=== PATIENT | male | born 1970 | race Caucasian/White ===

== ENCOUNTER 2023-09-27 13:08 | Observation (INO) ==
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
[2023-09-27 14:40] LABS: iSTAT Creatinine 1.1 mg/dl (0.6-1.3); iSTAT Hemoglobin 15.6 g/dl (14.0-18.0); iSTAT Ionized Calcium 1.16 mmol/l (1.12-1.32); iSTAT Potassium 3.7 mmol/L (3.3-5.0)
[2023-09-27] MEDS ORDERED: OPTIRAY 320 100ml IV ONE (14:40)
[2023-09-27 14:41] LABS: Hematocrit (blood only) 44.9 % (42.0-52.0); Hemoglobin 15.8 g/dl (14.0-18.0); Mean Corpuscular Hemoglobin 31.9 pg (25.0-34.0); Mean Corpuscular Hgb Conc 35.2 g/dL (32.0-36.0); Mean Corpuscular Volume 90.7 fL (80.0-100.0); Mean Platelet Volume 11.3 fL (9.4-12.4); Platelet Count 262 K/uL (130-400); RDW Coefficient of Variation 12.4 % (11.5-14.5); RDW Standard Deviation 40.9 fL (36.4-46.3); Red Blood Count 4.95 M/uL (4.70-6.10); White Blood Count 18.14 K/ul (4.8-10.8)
[2023-09-27 15:00] LABS: Albumin Globulin Ratio 1.3 (0.9-2); BUN Creatinine Ratio 15.4 (10-20); Bilirubin,Total 0.6 mg/dl (0.2-1.0); Calcium 9.1 mg/dl (8.6-10.3); Creatinine Clr Calc Pharmacy 99.2 ml/min; Est GFR (African American) 95.2 ml/min; Est GFR (Non-African American) 82.2 ml/min; Globulin 3.2 gm/dl (2.5-4.0); Potassium 3.8 mmol/L (3.5-5.1); Total Protein 7.2 gm/dl (6.0-8.3); Troponin I High Sensitivity 6.7 pg/ml (0-20)
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
[2023-09-27] MEDS ORDERED: KETOROLAC TROMETHAMINE 15 MG/ML VIAL IV STA (16:35)
[2023-09-27] MEDS ORDERED: MoRPHine SULFATE 4 MG/ML 1 ML CARP\\VIAL IV STA (17:04)
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
[2023-09-27] MEDS ORDERED: ACETAMINOPHEN 325 MG TAB PO PRN (18:33)
[2023-09-27] MEDS ORDERED: HYDROmorphone INJ 1 MG/ML SYRINGE IV PRN (18:33)
[2023-09-27] MEDS ORDERED: LIDOCAINE 5% 1 PATCH TD STA (18:33)
[2023-09-27] MEDS: HYDROmorphone INJ 0.5 MG/0.5 ML SYR IV PRN (21:08)
[2023-09-27] MEDS ORDERED: ALBUTEROL HFA 8 GM INHALER INH PRN (22:53)
[2023-09-27 23:12] LABS: Hematocrit (blood only) 42.6 % (42.0-52.0); Hemoglobin 15.1 g/dl (14.0-18.0)
[2023-09-28] MEDS ORDERED: NAPROXEN 250 MG TAB PO SCH
[2023-09-28] MEDS: HYDROmorphone INJ 0.5 MG/0.5 ML SYR IV PRN ×3 (01:12→11:24)
[2023-09-28 07:27] LABS: BUN Creatinine Ratio 15.2 (10-20); Calcium 8.7 mg/dl (8.6-10.3); Creatinine Clr Calc Pharmacy 97.8 ml/min; Est GFR (African American) 101.1 ml/min; Est GFR (Non-African American) 87.2 ml/min; Potassium 3.9 mmol/L (3.5-5.1)
[2023-09-28 07:33] LABS: Basophils # (auto) 0.04 K/uL (0.00-0.20); Basophils % (auto) 0.7 %; Eosinophils # (auto) 0.11 K/uL (0.00-0.50); Eosinophils % (auto) 1.8 %; Hematocrit (blood only) 43.4 % (42.0-52.0); Hemoglobin 14.9 g/dl (14.0-18.0); Immature Granulocytes # (auto) 0.03 K/uL (0.01-0.20); Immature Granulocytes % (auto) 0.5 %; Lymphocytes # (auto) 0.98 K/uL (1.20-3.40); Lymphocytes % (auto) 16.3 %; Mean Corpuscular Hemoglobin 31.7 pg (25.0-34.0); Mean Corpuscular Hgb Conc 34.3 g/dL (32.0-36.0); Mean Corpuscular Volume 92.3 fL (80.0-100.0); Mean Platelet Volume 11.7 fL (9.4-12.4); Monocytes # (auto) 0.78 K/uL (0.11-0.59); Neutrophils # (auto) 4.08 K/uL (1.40-6.50); Neutrophils % (auto) 67.7 %; Platelet Count 234 K/uL (130-400); RDW Coefficient of Variation 12.7 % (11.5-14.5); RDW Standard Deviation 43.3 fL (36.4-46.3); White Blood Count 6.02 K/ul (4.8-10.8)
[2023-09-28] MEDS ORDERED: CETIRIZINE HCL 10 MG TABLET PO SCH (09:00)
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
[2023-09-28] MEDS ORDERED: HYDROmorphone INJ 0.5 MG/0.5 ML SYR IV STA (13:23)
[2023-09-28] MEDS ORDERED: oxyCODONE IR HOME PACK PO PRN (13:29)
--- NOTE | 2023-09-28 17:46 | Billing Data ---
Date of Service September 28, 2023 Coding Level of Care Code 63057 IN/OBS DISCH 30 MIN/LESS
--- NOTE | 2023-09-28 20:04 | Electrocardiogram Report ---
Test Reason : Blood Pressure : / mmHG Vent. Rate : 088 BPM Atrial Rate : 088 BPM P-R Int : 186 ms QRS Dur : 090 ms QT Int : 388 ms P-R-T Axes : 086 068 058 degrees QTc Int : 469 ms Poor data quality, interpretation may be adversely affected Normal sinus rhythm Normal ECG No previous ECGs available Confirmed by Garland Servin ([id number]) on 09/28/2023 8:03:38 PM Referred By: Confirmed By:Garland Servin
--- OUTSIDE RECORDS SUMMARY | 2023-09-30 22:51 | External Medical Summary | Continuity of Care Document ---
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, System Address Unknown Organization Unknown Address Unknown Care Team Providers Care Prescription Clerk Name Role Phone HENRI MYERS Unavailable Unavailable Aniya Noriega MD Unavailable [phone] HENRI MYERS MD Unavailable [phone] KYREE GUIDRY MD Unavailable [phone] ZOHAIB MADRIGAL MD Unavailable Conchita BRAUN, Michelle A Unavailable Unavailab Zohaib Flanagan MD Unavailable Unavailable Antoinette Webber Unavailable Unavailable Unavailable Unavailable Problems Asthma MD Aniya Noriega COVID-19 virus infection(U07 .1) (079.89) MD Aniya Noriega Comments:10/2021, 02/2022 Health education (Renamed fr Encounter for health education)(Z71.9) (V65.40) APARNA Arango Intermittent palpitations(R0 0.2) (785.1) MD Aniya Noriega Left chest pressure(R07.89) (786.59) MD Aniya Noriega Mitral Valve Prolapse MD Aniya Noriega MVP (mitral valve prolapse)( I34.1) (424.0) MD Aniya Noriega Overweight (BMI 25.0-29.9)(E 66.3) (278.02) MD Aniya Noriega Paroxysmal SVT (supraventric ular tachycardia)(I47.1) (427.0) MD Aniya Noriega PFO MD Aniya Noriega Comments:patent formale valve Premature atrial contraction(I49.1) (427.61) MD Aniya Noriega PVC (premature ventricular contraction)(I49.3) (427.69) MD Aniya Noriega Received COVID-19 vaccine MD Aniya Noriega Comments:1 doses Allergies and Adverse Reactions No IV Dye Allergy(Allergy) No Known Drug Allergies(Gutierrez rgy) Onset: 04-Oct-2015 No latex allergy(Allergy) No shellfish allergy(Allergy ) Medications CLARITIN, 5MG (Oral Tablet C hewable);1 as needed (5 MG) Comments:Medication taken as needed. IBUPROFEN, 600MG (Oral Table t);1 as needed (600 MG) Comments:Medication taken as needed. Qvar 40 MCG/ACT Inhalation A erosol Solution;as needed (40 MCG/ACT) Comments:Medication taken as needed. Ventolin HFA 108 (90 Base) M CG/ACT Inhalation Aerosol Solution;as needed (108 (90 Base) MCG/ACT) Comments:Medication taken as needed. Procedures EPS ABLATION Status:Completed Comments:found tachycardia x2 1995 1998 Finger Status:Completed Comments:Left. pinky fx Varicole Status:Completed Comments:testical repair Echo Date:23-Oct-2015 Status:[id number] MD Herminio Zohaib- Procedure Note: See Note Family History Unknown Family Member Father Status:Active Comments:In good health. no heart disease Mother Status:Active Comments:In good health. no heart disease Sister 1 Status:Active Comments:In good health. no heart disease Social History Alcohol use:;Occasional alcohol use. Current work status:;Full-time. MD H[facility] Marital status:;. Tobacco use:;Never smoker. Smoking Status Never smoked tobacco Sex Male Plan of Treatment Planned Procedures Extended wear monitor - 7 da ys (67882) - SOON (within 1 - 2 weeks) Start:18-Apr-2023 Intent Exercise Stress Test (ST) (83989) - SOON (within 1-2 weeks) Start:18-Apr-2023 Intent 2D Echo, Complete (02973) - SOON (within 1-2 weeks) Start:18-Apr-2023 Intent Comments:With or without IV contrast enhancement agent ELECTROCARDIOGRAM, COMPLETE (53114) Start:18-Apr-2023 Intent Holter Monitor Start:04-Oct-2015 Intent Instructions Exercise to Stay Healthy: ae robic exercise Indication:Overweight (BMI 25.0-29.9) Start:18-Apr-2023 Instruction Type:Patient Education Follow Up with office if no improvement or symptoms worsen Indication:Premature atrial contraction Start:19-Dec-2017 Instruction Type:Provider Instructions for Treatment Results No Known Results No Result Information Available Vital Signs 18-Apr-2023 15:55 BP Ukzoalca430nc[Hg] Comments:Pa tient Position: Sitting; Cuff Location: Right Arm; Cuff Size: Standard BP Lasbnvrry05pd[Hg] Comments:Pa tient Position: Sitting; Cuff Location: Right Arm; Cuff Size: Standard 18-Apr-2023 15:49 Zbtgxvcqliq19.6f Pulse77/min Comments:Pattern : Regular BP Qocqdmiy283bx[Hg] Comments:Pa tient Position: Sitting; Cuff Location: Left Arm; Cuff Size: Standard BP Jxepjfyrd15kc[Hg] Comments:Pa tient Position: Sitting; Cuff Location: Left Arm; Cuff Size: Standard Cpnxsj81fe Whbkws019.34cm BMI27.06kg/m2 BSA2.08m2 19-Dec-2017 16:28 BP Qqilhgoo648sc[Hg] Comments:Pa tient Position: Sitting; Cuff Location: Right Arm; Cuff Size: Standard BP Hvgpzfdyl83mr[Hg] Comments:Pa tient Position: Sitting; Cuff Location: Right Arm; Cuff Size: Standard 19-Dec-2017 16:23 Pulse78/min Comments:Pattern : Regular BP Bhvoxwfc654no[Hg] Comments:Pa tient Position: Sitting; Cuff Location: Left Arm; Cuff Size: Standard BP Auesplrgm18ry[Hg] Comments:Pa tient Position: Sitting; Cuff Location: Left Arm; Cuff Size: Standard Kgabul732.125lb Csodda55zt BMI26.24kg/m2 BSA2.05m2 01-Nov-2015 12:34 BP Vxrhozyg212fj[Hg] Comments:Pa tient Position: Sitting; Cuff Location: Right Arm; Cuff Size: Standard BP Svpndwjsb10cv[Hg] Comments:Pa tient Position: Sitting; Cuff Location: Right Arm; Cuff Size: Standard 01-Nov-2015 12:33 Pulse64/min Comments:Pattern : Regular BP Xkpfrdld568ut[Hg] Comments:Pa tient Position: Sitting; Cuff Location: Left Arm; Cuff Size: Standard BP Smhnrpdtt28rp[Hg] Comments:Pa tient Position: Sitting; Cuff Location: Left Arm; Cuff Size: Standard Cyqrzs183.1lb Qxxpsz94ht BMI25.96kg/m2 BSA2.05m2 04-Oct-2015 15:09 BP Ficqjdfy534fr[Hg] Comments:Pa tient Position: Sitting; Cuff Location: Right Arm; Cuff Size: Standard BP Gsygmebeh33fo[Hg] Comments:Pa tient Position: Sitting; Cuff Location: Right Arm; Cuff Size: Standard 04-Oct-2015 15:08 Pulse88/min Comments:Pattern : Regular BP Ekisjfru525po[Hg] Comments:Pa tient Position: Sitting; Cuff Location: Left Arm; Cuff Size: Standard BP Rqevopsxo28nx[Hg] Comments:Pa tient Position: Sitting; Cuff Location: Left Arm; Cuff Size: Standard Nnzrsu726.7lb Ddznid13no BMI25.90kg/m2 BSA2.04m2 Encounters *CLINICAL NOTE TO CHART 13-Jun-2023 9:83Ee71-Ujq-5346 9:18 [facility], [facility] Cardiology Review Encounter Reason:follow up - .FOLLOW UP.Mr. Cosmo Zambrano is a 52-year-old pleasant gentleman with a past medical history significant of paroxysmal SVT, intermittent palpitations, PACs, PVCs, and mitral valve prolapse. The patient presents to [facility] cardiology office for a close follow-up appointment. The patient was recently seen in this clinic on 04/18/2023 by myself for reestablishment of care..Since his last appointment, the patient with the following testing:.LABS (05/09/2023): Sodium 141, potassium 4.5, BUN 15, creatinine 0.98, hemoglobin 16.7, hematocrit 48.1, platelets 230, T cholesterol 159, triglycerides 76, HDL 45, LDL 99, PSA 0.17, TSH 2.6.HOLTER MONITOR-7 days (05/30/2023): The predominant rhythm is sinus rhythm. Average HR 81 bpm (HR range 57 bpm - 141 bpm). There are periods of sinus tachycardia. No evidence of atrial fibrillation or atrial flutter. Rare PACs. Rare paroxysmal SVT (1 event) lasting 3 beats and up to 110 bpm. Rare PVCs. No paroxysmal NSVT or sustained VT. There are periods of sinus bradycardia with rare pauses (1 event) lasting 2.2 seconds. No high-grade AV block. Patient reported events variably correlate with sinus tachycardia..EXERCISE TREADMILL STRESS TEST (05/30/2023): Negative for inducible myocardial ischemia by ECG findings or symptoms. The patient's exercise capacity is good for age and gender with a maximal workload of 12.6 METS and Thompson treadmill risk score of +10.5..ECHOCARDIOGRAM (05/30/2023): Normal LV cavity size, mild left ventricular hypertrophy, normal LV systolic function. Calculated LVEF 62%. Normal RV cavity size and RV systolic function. Normal biatrial size. Trace mitral regurgitation. Mild tricuspid regurgitation. 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 Cosmo Zambrano is a 52-year-old pleasant gentleman with a past medical history significant of paroxysmal SVT, intermittent palpitations, PACs, PVCs, and mitral valve prolapse. The patient presents to [facility] cardiology office for reestablishment of care. The patient was previously seen in this clinic on 12/19/2017 by Zohaib Madrigal MD.*At this time, the patient has no active cardiac complaints. Specifically, the patient denies any recent sick contacts, subjective fevers, nausea, vomiting, headaches, dizziness, presyncope/syncope, orthopnea, paroxysmal nocturnal dyspnea, shortness of breath, dyspnea on exertion, chest pain, epigastric pain, dysuria, hematuria, diarrhea, constipation, subjective weight gain, or lower extremity swelling. Encounter Diagnosis:Health education (Renamed from Encounter for health education),Intermittent palpitations,Paroxysmal SVT (supraventricular tachycardia),MVP (mitral valve prolapse),Premature atrial contraction,Overweight (BMI 25.0-29.9),Left chest pressure,PVC (premature ventricular contraction) 18-Apr-2023 16:56Kk9-Kda-9359 16:15 [facility][NOTE 3] cc: Henri Myers IV, MD [facility] Appointment Encounter Reason:[facility] F/U Chronic Conditions - The conditions include mitral valve disease and supraventricular tachycardia. The patient admits to symptoms of palpitations while denying symptoms of chest pain, claudication, dizziness, edema, fatigue, lightheadedness, orthopnea, pre-syncopal episodes, shortness of breath or syncope. Note for "Chronic conditions": Pt overall feels good-- notes occasional skipped beats-- mostly at rest.No prolonged events. Encounter Diagnosis:Paroxysmal SVT (supraventricular tachycardia),Intermittent palpitations,Premature atrial contraction 2 16:38Ee0-Kzq-0848 17:40 [facility][NOTE 3] CC- Henri Myers (PCP) [facility] Appointment Encounter Reason:[facility] F/U Chronic Conditions - The conditions include mitral valve disease and supraventricular tachycardia. The patient denies chest pain, claudication, dizziness, edema, fatigue, lightheadedness, palpitations, orthopnea, pre-syncopal episodes, shortness of breath or syncope.,[ADDITIONAL REASON] Follow up diagnostic procedure - Diagnostic tests include echocardiogram and holter monitor. Encounter Diagnosis:MVP (mitral valve prolapse),Paroxysmal SVT (supraventricular tachycardia) 01-Nov-2015 12:06Vb01-Lov-4405 12:55 [facility][NOTE 3] [facility] Appointment Encounter Reason:Pre-operative consultation - The patient is scheduled for sinus and it is scheduled to be performed on no date yet. The surgeon is Dr. Guidry. The patient admits to symptoms of palpitations while denying symptoms of chest pain, claudication, dizziness, edema, lightheadedness, orthopnea, pre-syncopal episodes, shortness of breath or syncope. Note for "Pre-operative consultation": Pt with hx of SVT ablation-- no syncope or chest pain.Pt with hx of MVP- no sig MR Encounter Diagnosis:Paroxysmal SVT (supraventricular tachycardia),MVP (mitral valve prolapse),Intermittent palpitations 04-Oct-2015 14:09Co92-Kwo-7754 15:35 [facility][NOTE 3] Payers Insurance Providers [employer] [address] [place] [id number] [place] tel: Group Number:[id number] [facility] [address] [place] [id number] [place] tel: Group Number:[id number] Guarantors Cosmo Hogan [facility] [address] [facility] [place] [address] tel:
--- OUTSIDE RECORDS SUMMARY | 2023-09-30 22:51 | External Medical Summary | Continuity of Care Document ---
Author Name It Network Architect, System Address Unknown Organization Unknown Address Unknown Care Team Providers Care Sales Effectiveness Manager Name Role Phone HENRI MYERS Unavailable Unavailable Aniya Noriega MD Unavailable [phone] HENRI MYERS MD Unavailable [phone] KYREE GUIDRY MD Unavailable [phone] ZOHAIB MADRIGAL MD Unavailable Michelle Arango MA Unavailable Unavailab mitzi Marques MA, Ashley N Unavailable Unavailable Zohaib Madrigal MD Unavailable Unavailable Antoinette Webber Unavailable Unavailable Unavailable Unavailable Problems Asthma MD Aniya Noriega COVID-19 virus infection(U07 .1) (079.89) MD Aniya Noriega Comments:10/2021, 02/2022 Health education (Renamed fr om Encounter for health education)(Z71.9) (V65.40) APARNA Arango Health education (Renamed fr om Encounter for health education)(Z71.9) (V65.40) APARNA Marques Ashley N Intermittent palpitations(R0 0.2) (785.1) MD Aniya Noriega Left chest pressure(R07.89) (786.59) MD Aniya Noriega Mitral regurgitation(I34.0) (424.0) MD Aniya Noriega Mitral Valve Prolapse MD [...] Base) MCG/ACT) Comments:Medication taken as needed. Procedures bisopy on the neck Status:Comple jhoana EPS ABLATION Status:Completed Comments:found tachycardia x2 1995 1998 Finger Status:Completed Comments:Left. pinky fx Varicole Status:Completed Comments:testical repair Echo Date:23-Oct-2015 Status:[id number]-[id number] MD Zohaib Madrigal- Procedure Note: See Note Family History Unknown Family Member Father Status:Active Comments:In good health. no heart disease Mother Status:Active Comments:In good health. no heart disease Sister 1 Status:Active Comments:In good health. no heart disease Social History Alcohol use:;Occasional alcohol use. Current work status:;Full-time. 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 Tobacco use:;Never smoker. Smoking Status Never smoked tobacco Sex Male Plan of Treatment Planned Procedures 2D Echo, Complete (31604) - ELECTIVE (BEYOND 2 weeks - MUST ENTER DATE OR TIME FRAME) Start:13-Jun-2024 Intent Comments:With or without IV contrast enhancement agent Extended wear monitor - 7 da ys (08223) - SOON (within 1 - 2 weeks) Start:18-Apr-2023 Intent Exercise Stress Test (ST) (38687) - SOON (within 1-2 weeks) Start:18-Apr-2023 Intent 2D Echo, Complete (23366) - SOON (within 1-2 weeks) Start:18-Apr-2023 Intent Comments:With or without IV contrast enhancement agent ELECTROCARDIOGRAM, COMPLETE (89765) Start:18-Apr-2023 Intent Holter Monitor Start:04-Oct-2015 Intent Planned Observations Lipid Panel w/Reflex LDLD Start:12-Jun-2024 14:06 Request METABOLIC PANEL, BASIC Start:12-Jun-2024 14:06 Request Comments:Fasting CBC & PLATELETS Start:12-Jun-2024 14:06 Request Instructions Exercise to Stay Healthy: josias marcano exercise Indication:Overweight (BMI 25.0-29.9) Start:18-Apr-2023 Instruction Type:Patient Education Follow Up with office if no improvement or symptoms worsen Indication:Premature atrial contraction Start:19-Dec-2017 Instruction Type:Provider Instructions for Treatment Results No Known Results No Result Information Available Vital Signs 13-Jun-2023 13:37 BP Injljxvb079wt[Hg] Comments:Pa tient Position: Sitting; Cuff Location: Right Arm; Cuff Size: Standard BP Pqkqmriws94fd[Hg] Comments:Pa tient Position: Sitting; Cuff Location: Right Arm; Cuff Size: Standard 13-Jun-2023 13:37 Pulse78/min Comments:Pattern : Regular BP Jaivpkpf440pm[Hg] Comments:Pa tient Position: Sitting; Cuff Location: Left Arm; Cuff Size: Standard BP Gfbkyjsdi08ad[Hg] Comments:Pa tient Position: Sitting; Cuff Location: Left Arm; Cuff Size: Standard Uougrn74.8kg Twrkbp158.34cm BMI27.30kg/m2 BSA2.09m2 18-Apr-2023 15:55 BP Wdquxnfb992cs[Hg] Comments:Pa tient Position: Sitting; Cuff Location: Right Arm; Cuff Size: Standard BP Wwzxvspum57di[Hg] Comments:Pa tient Position: Sitting; Cuff Location: Right Arm; Cuff Size: Standard 18-Apr-2023 15:49 Kkkiyyvtatw05.6f Pulse77/min Comments:Pattern : Regular BP Kalohfkh823qm[Hg] Comments:Pa tient Position: Sitting; Cuff Location: Left Arm; Cuff Size: Standard BP Aymbsitiq75zp[Hg] Comments:Pa tient Position: Sitting; Cuff Location: Left Arm; Cuff Size: Standard Febicg83bi Cbljox959.34cm BMI27.06kg/m2 BSA2.08m2 19-Dec-2017 16:28 BP Ypjprtek783rq[Hg] Comments:Pa tient Position: Sitting; Cuff Location: Right Arm; Cuff Size: Standard BP Dkfuinhdj76gj[Hg] Comments:Pa tient Position: Sitting; Cuff Location: Right Arm; Cuff Size: Standard 19-Dec-2017 16:23 Pulse78/min Comments:Pattern : Regular BP Dphvjmbw981bz[Hg] Comments:Pa tient Position: Sitting; Cuff Location: Left Arm; Cuff Size: Standard BP Ykqxkuyza89sv[Hg] Comments:Pa tient Position: Sitting; Cuff Location: Left Arm; Cuff Size: Standard Eodbhr404.125lb Cexuvo89pd BMI26.24kg/m2 BSA2.05m2 01-Nov-2015 12:34 BP Gmlxoers989fl[Hg] Comments:Pa tient Position: Sitting; Cuff Location: Right Arm; Cuff Size: Standard BP Wfjgcbjpv77pg[Hg] Comments:Pa tient Position: Sitting; Cuff Location: Right Arm; Cuff Size: Standard 01-Nov-2015 12:33 Pulse64/min Comments:Pattern : Regular BP Cdplebov002dy[Hg] Comments:Pa tient Position: Sitting; Cuff Location: Left Arm; Cuff Size: Standard BP Dysumxfzt58tb[Hg] Comments:Pa tient Position: Sitting; Cuff Location: Left Arm; Cuff Size: Standard Cvwqmm453.1lb Vmuzwm03dn BMI25.96kg/m2 BSA2.05m2 04-Oct-2015 15:09 BP Oqctzlyx540xc[Hg] Comments:Pa tient Position: Sitting; Cuff Location: Right Arm; Cuff Size: Standard BP Oxipoebcv24ii[Hg] Comments:Pa tient Position: Sitting; Cuff Location: Right Arm; Cuff Size: Standard 04-Oct-2015 15:08 Pulse88/min Comments:Pattern : Regular BP Xnwtzjas945eq[Hg] Comments:Pa tient Position: Sitting; Cuff Location: Left Arm; Cuff Size: Standard BP Xvrgfvcel17cd[Hg] Comments:Pa tient Position: Sitting; Cuff Location: Left Arm; Cuff Size: Standard Hcswju651.7lb Akrwkj99hh BMI25.90kg/m2 BSA2.04m2 Encounters CHART NOTE NOT COMPLETE Encounter Reason:follow up - .FOLLOW UP.Mr. Cosmo Zambrano is a 52-year-old pleasant gentleman with a past medical history significant of paroxysmal SVT, intermittent palpitations, PACs, PVCs, and mitral valve prolapse. The patient presents to [facility] cardiology office for a close follow-up appointment. [...] biatrial size. Trace mitral regurgitation. Mild tricuspid regurgitation.,[ADDITIONAL REASON] Follow up diagnostic procedure - Diagnostic tests include echocardiogram and stress test. Encounter Diagnosis:PVC (premature ventricular contraction),Left chest pressure,Overweight (BMI 25.0-29.9),MVP (mitral valve prolapse),Intermittent palpitations,Paroxysmal SVT (supraventricular tachycardia),Health education (Renamed from Encounter for health education),Mitral regurgitation 13-Jun-2023 13:24Tc40-Wzy-9203 14:07 [facility] .PLAN:Mr. Cosmo Zambrano III is a 53-year-old gentleman with a past medical history listed above who presents to [facility] cardiology for close follow-up appointment after recent cardiovascular testing. The patient has no active cardiac plaints at this time. We discussed his test work extensively. In regards to patient Holter monitor there were rare paroxysmal SVT for the patient was asymptomatic and rare PVCs as well. The patient's was instructed to continue his lites modifications as currently being performed (limit caffeine intake, avoiding sleep deprivation, stress management). The patient echocardiogram notable for mitral intracostal regurgitation as well as mild left ventricular hypertrophy. Patient adamant that he does not have a history of hypertension although he was recommended to check his blood pressure once daily and to contact our office if he notices blood pressure with readings >130/85 mmHg. Patient's exercise treadmill stress was negative for inducible myocardial schema. The patient denies any recurrent chest pain since her last appointment and continues to feel well. He will be scheduled for an annual follow-up appointment in 12 months with repeat labs and echocardiogram to evaluate his regurgitant volumes as well as LVH. Thank you for allowing [facility] cardiology to be a part of Mr. 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 Cosmo Zambrano is a 52-year-old pleasant gentleman with a past medical history significant of paroxysmal SVT, intermittent palpitations, PACs, PVCs, and mitral valve prolapse. The patient presents to [facility] cardiology office for reestablishment of care. The [...] 25.0-29.9),Left chest pressure,PVC (premature ventricular contraction) 18-Apr-2023 16:05Ov0-Vtg-5273 16:15 [facility] cc: Henri Myers IV, MD [facility] Appointment Encounter Reason:[facility] F/U Chronic Conditions - The conditions include [...] Diagnosis:Paroxysmal SVT (supraventricular tachycardia),Intermittent palpitations,Premature atrial contraction 19-Dec-2017 16:28Ps2-Jqe-8014 17:40 [facility] CC- Henri Myers (PCP) [facility] Appointment Encounter Reason:[facility] F/U Chronic Conditions - The conditions include mitral valve disease and supraventricular tachycardia. The patient denies chest pain, claudication, dizziness, edema, fatigue, lightheadedness, palpitations, orthopnea, pre-syncopal episodes, shortness of breath or syncope.,[ADDITIONAL REASON] Follow up diagnostic procedure - Diagnostic tests include echocardiogram and holter monitor. Encounter Diagnosis:MVP (mitral valve prolapse),Paroxysmal SVT (supraventricular tachycardia) 01-Nov-2015 12:93Mg66-Uaj-7735 12:55 [facility] Appointment Encounter Reason:Pre-operative consultation - The patient [...] (supraventricular tachycardia),MVP (mitral valve prolapse),Intermittent palpitations 04-Oct-2015 14:86Ha93-Znq-8259 15:35 [facility] Payers Insurance Providers [facility] [address] [place] [address] [place] tel: Group Number:[id number] [facility] [address] [facility] [id number] tel: Group Number:[id number] [employer] Cosmo oD Hogan III [address] [place] [address] tel:
--- OUTSIDE RECORDS SUMMARY | 2023-09-30 22:51 | External Medical Summary | Continuity of Care Document ---
Author Name Certified Medical Coder, System Address Unknown Organization Unknown Address Unknown Care Team Providers Care Instruction Librarian Name Role Phone HENRI MYERS Unavailable Unavailable Aniya Noriega MD Unavailable [phone] HENRI MYERS MD Unavailable KYREE GUIDRY MD Unavailable ZOHAIB MADRIGAL MD Unavailable Michelle Arango MA Unavailable UnavailZohaib Feliciano MD Unavailable Unavailable Antoinette Webber Unavailable Unavailable Unavailable Unavailable Problems Asthma APARNA Arango COVID-19 virus infection(U07 .1) (079.89) APARNA Arango Comments:10/2021, 02/2022 Health education (Renamed fr Encounter for health education)(Z71.9) (V65.40) APARNA Arango Intermittent palpitations(R0 0.2) (785.1) MD Aniya Noriega Left chest pressure(R07.89) (786.59) MD Aniya Noriega Mitral Valve Prolapse APARNA Arango MVP (mitral valve prolapse)( I34.1) (424.0) MD Aniya Noriega Overweight (BMI 25.0-29.9)(E 66.3) (278.02) MD Aniya Noriega Paroxysmal SVT (supraventric ular tachycardia)(I47.1) (427.0) MD Aniya Noriega PFO APARNA Arango Comments:patent formale valve Premature atrial contraction(I49.1) (427.61) MD Aniya Noriega PVC (premature ventricular contraction)(I49.3) (427.69) MD Aniya Noriega Received COVID-19 vaccine APARNA Arango Comments:1 doses Allergies and Adverse Reactions No [...] fx Varicole Status:Completed Comments:testical repair Echo Date:23-Oct-2015 Status:Ptnmxaumm8-Cwz-3433 MD Zohaib Madrigal- Procedure Note: See Note Family History Unknown Family Member Father Status:Active Comments:In good health. no heart disease Mother Status:Active Comments:In good health. no heart disease Sister 1 Status:Active Comments:In good health. no heart disease Social History Alcohol use:;Occasional alcohol use. Current work status:;Full-time. APARNA Arango- [employer] Marital status:;. Tobacco use:;Never smoker. Smoking Status Never smoked tobacco Sex Male Plan of Treatment Planned Procedures Extended wear monitor - 7 da ys (33331) - SOON (within 1 - 2 weeks) Start:18-Apr-2023 Intent Exercise Stress Test (ST) (42919) - SOON (within 1-2 weeks) Start:18-Apr-2023 Intent 2D Echo, Complete (69560) - SOON (within 1-2 weeks) Start:18-Apr-2023 Intent Comments:With or without IV contrast enhancement agent ELECTROCARDIOGRAM, COMPLETE (58096) Start:18-Apr-2023 Intent Holter Monitor Start:04-Oct-2015 Intent Instructions Exercise to Stay Healthy: josias marcano exercise Indication:Overweight (BMI 25.0-29.9) Start:18-Apr-2023 Instruction Type:Patient Education Follow Up with office if no improvement or symptoms worsen Indication:Premature atrial contraction Start:19-Dec-2017 Instruction Type:Provider Instructions for Treatment Results No Known Results No Result Information Available Vital Signs 18-Apr-2023 15:55 BP Jprkkpoz988tg[Hg] Comments:Pa tient Position: Sitting; Cuff Location: Right Arm; Cuff Size: Standard BP Ybufbeskt53jo[Hg] Comments:Pa tient Position: Sitting; Cuff Location: Right Arm; Cuff Size: Standard 18-Apr-2023 15:49 Nvqzlsubquk12.6f Pulse77/min Comments:Pattern : Regular BP Rscdyycm344mm[Hg] Comments:Pa tient Position: Sitting; Cuff Location: Left Arm; Cuff Size: Standard BP Wfeuidoto44mr[Hg] Comments:Pa tient Position: Sitting; Cuff Location: Left Arm; Cuff Size: Standard Drkwdl12uf Dtbvaz426.34cm BMI27.06kg/m2 BSA2.08m2 19-Dec-2017 16:28 BP Waoiadwf666zj[Hg] Comments:Pa tient Position: Sitting; Cuff Location: Right Arm; Cuff Size: Standard BP Ggjxpbyqx30ne[Hg] Comments:Pa tient Position: Sitting; Cuff Location: Right Arm; Cuff Size: Standard 19-Dec-2017 16:23 Pulse78/min Comments:Pattern : Regular BP Cwajrirg065ku[Hg] Comments:Pa tient Position: Sitting; Cuff Location: Left Arm; Cuff Size: Standard BP Zaeinoksu61tz[Hg] Comments:Pa tient Position: Sitting; Cuff Location: Left Arm; Cuff Size: Standard Moxpol346.125lb Oxeaad68ov BMI26.24kg/m2 BSA2.05m2 01-Nov-2015 12:34 BP Sclrniaq867js[Hg] Comments:Pa tient Position: Sitting; Cuff Location: Right Arm; Cuff Size: Standard BP Wszoerhxm37do[Hg] Comments:Pa tient Position: Sitting; Cuff Location: Right Arm; Cuff Size: Standard 01-Nov-2015 12:33 Pulse64/min Comments:Pattern : Regular BP Vnqmegwj738bm[Hg] Comments:Pa tient Position: Sitting; Cuff Location: Left Arm; Cuff Size: Standard BP Mboantqss49el[Hg] Comments:Pa tient Position: Sitting; Cuff Location: Left Arm; Cuff Size: Standard Jogtpg516.1lb Cixust55wp BMI25.96kg/m2 BSA2.05m2 04-Oct-2015 15:09 BP Gpnbfpjs567ue[Hg] Comments:Pa tient Position: Sitting; Cuff Location: Right Arm; Cuff Size: Standard BP Wxrfmsbwg01tr[Hg] Comments:Pa tient Position: Sitting; Cuff Location: Right Arm; Cuff Size: Standard 04-Oct-2015 15:08 Pulse88/min Comments:Pattern : Regular BP Axdpiblh470lu[Hg] Comments:Pa tient Position: Sitting; Cuff Location: Left Arm; Cuff Size: Standard BP Bpemixmsh65gv[Hg] Comments:Pa tient Position: Sitting; Cuff Location: Left Arm; Cuff Size: Standard Zzplpg592.7lb Hlhebg22cn BMI25.90kg/m2 BSA2.04m2 Encounters BCL Appointment Encounter Reason:BCL New Patient Visit,[ADDITIONAL REASON] 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 Cosmo Zambrano is a 52-year-old pleasant gentleman with a past medical history significant of paroxysmal SVT, intermittent palpitations, PACs, PVCs, and mitral valve prolapse. The patient presents to [facility] cardiology office for reestablishment of care. [...] 25.0-29.9),Left chest pressure,PVC (premature ventricular contraction) 18-Apr-2023 16:21Xr6-Oqi-7431 16:15 [facility] cc: Henri Myers IV, MD [facility] Appointment Encounter Reason:BCL F/U Chronic Conditions [...] SVT (supraventricular tachycardia),Intermittent palpitations,Premature atrial contraction 19-Dec-2017 16:85Vw0-Ckn-6768 17:40 [facility] CC- Henri Myers (PCP) [facility] Appointment Encounter Reason:BCL F/U Chronic Conditions - The conditions include mitral valve disease and supraventricular tachycardia. The patient denies chest pain, claudication, dizziness, edema, fatigue, lightheadedness, palpitations, orthopnea, pre-syncopal episodes, shortness of breath or syncope.,[ADDITIONAL REASON] Follow up diagnostic procedure - Diagnostic tests include echocardiogram and holter monitor. Encounter Diagnosis:MVP (mitral valve prolapse),Paroxysmal SVT (supraventricular tachycardia) 01-Nov-2015 12:73Nm40-Qmn-2053 12:[address] [facility] BCL Appointment Encounter Reason:Pre-operative consultation - The [...] (supraventricular tachycardia),MVP (mitral valve prolapse),Intermittent palpitations 04-Oct-2015 14:66Hh60-Hjg-1464 15:35 [facility] Payers Insurance Providers [facility] [employer] [address] [employer] [place] [address] [place] tel: Group Number:[id number] [facility] [address] [facility] [id number] [place] tel: Group Number:[id number] Guarantors Cosmo Hogan III [address] [place] [address] tel:
--- OUTSIDE RECORDS SUMMARY | 2023-09-30 22:51 | External Medical Summary | Continuity of Care Document ---
Author Name Furniture Mover Driver, System Address Unknown Organization Unknown Address Unknown Care Team Providers Care Machine Tool Designer Name Role Phone HENRI MYERS Unavailable Unavailable Aniya Noriega MD Unavailable HENRI MYERS MD Unavailable KYREE GUIDRY MD Unavailable ZOHAIB MADRIGAL MD Unavailable Zohaib Madrigal MD Unavailable Unavailable Antoinette Webber Unavailable Unavailable Michelle Arango MA Unavailable Unavailab le Unavailable Unavailable Problems Asthma APARNA Arango COVID-19 [...] fx Varicole Status:Completed Comments:testical repair Echo Date:23-Oct-2015 Status:Rlgxpbznb7-Dyp-7145 MD Zohaib Madrigal- Procedure Note: See Note Family History Unknown Family Member Father Status:Active Comments:In good health. no heart disease Mother Status:Active Comments:In good health. no heart disease Sister 1 Status:Active Comments:In good health. no heart disease Social History Alcohol use:;Occasional alcohol use. Current work status:;Full-time. APARNA Arango- [employer] Marital status:;. Tobacco use:;Never smoker. Smoking Status Never smoked tobacco Sex Male Plan of Treatment Planned Procedures Extended wear monitor - 7 da ys (08948) - SOON (within 1 - 2 weeks) Start:18-Apr-2023 Intent Exercise Stress Test (ST) (28360) - SOON (within 1-2 weeks) Start:18-Apr-2023 Intent 2D Echo, Complete (30663) - SOON (within 1-2 weeks) Start:18-Apr-2023 Intent Comments:With or without IV contrast enhancement agent ELECTROCARDIOGRAM, COMPLETE (08881) Start:18-Apr-2023 Intent Holter Monitor Start:04-Oct-2015 Intent Planned Encounters Medical; Follow Up - f/u to echo, exercise stress, extended monitor [facility] Start:13-Jun-2023 13:30 MD Aniya Noriega Appointment Request Instructions Exercise to Stay Healthy: josias marcano exercise Indication:Overweight (BMI 25.0-29.9) Start:18-Apr-2023 Instruction Type:Patient Education Follow Up with office if no improvement or symptoms worsen Indication:Premature atrial contraction Start:19-Dec-2017 Instruction Type:Provider Instructions for Treatment Results No Known Results No Result Information Available Vital Signs 18-Apr-2023 15:55 BP Ckzwrbls443og[Hg] Comments:Pa tient Position: Sitting; Cuff Location: Right Arm; Cuff Size: Standard BP Thiucjzwp48nn[Hg] Comments:Pa tient Position: Sitting; Cuff Location: Right Arm; Cuff Size: Standard 18-Apr-2023 15:49 Pahfapjeswi33.6f Pulse77/min Comments:Pattern : Regular BP Cyqedbuq878ft[Hg] Comments:Pa tient Position: Sitting; Cuff Location: Left Arm; Cuff Size: Standard BP Dguutefvg77mv[Hg] Comments:Pa tient Position: Sitting; Cuff Location: Left Arm; Cuff Size: Standard Wfruvf69pe Ggsgfx226.34cm BMI27.06kg/m2 BSA2.08m2 19-Dec-2017 16:28 BP Cssfxwmg312kj[Hg] Comments:Pa tient Position: Sitting; Cuff Location: Right Arm; Cuff Size: Standard BP Elqvhappy06vv[Hg] Comments:Pa tient Position: Sitting; Cuff Location: Right Arm; Cuff Size: Standard 19-Dec-2017 16:23 Pulse78/min Comments:Pattern : Regular BP Ckxdsxwv401iu[Hg] Comments:Pa tient Position: Sitting; Cuff Location: Left Arm; Cuff Size: Standard BP Ovgjlocyy50qs[Hg] Comments:Pa tient Position: Sitting; Cuff Location: Left Arm; Cuff Size: Standard Fbxqkk652.125lb Bdwowd71xw BMI26.24kg/m2 BSA2.05m2 01-Nov-2015 12:34 BP Qhmgxtkq527gr[Hg] Comments:Pa tient Position: Sitting; Cuff Location: Right Arm; Cuff Size: Standard BP Ttgvkxzjm97pa[Hg] Comments:Pa tient Position: Sitting; Cuff Location: Right Arm; Cuff Size: Standard 01-Nov-2015 12:33 Pulse64/min Comments:Pattern : Regular BP Auqloybp065de[Hg] Comments:Pa tient Position: Sitting; Cuff Location: Left Arm; Cuff Size: Standard BP Rgizfpyvx81er[Hg] Comments:Pa tient Position: Sitting; Cuff Location: Left Arm; Cuff Size: Standard Sojkfh006.1lb Edkdjf41mc BMI25.96kg/m2 BSA2.05m2 04-Oct-2015 15:09 BP Oxwlhojg853ut[Hg] Comments:Pa tient Position: Sitting; Cuff Location: Right Arm; Cuff Size: Standard BP Yqxgyqhxt18tk[Hg] Comments:Pa tient Position: Sitting; Cuff Location: Right Arm; Cuff Size: Standard 04-Oct-2015 15:08 Pulse88/min Comments:Pattern : Regular BP Rbfwwnhc436ds[Hg] Comments:Pa tient Position: Sitting; Cuff Location: Left Arm; Cuff Size: Standard BP Pcosxmpxy63qv[Hg] Comments:Pa tient Position: Sitting; Cuff Location: Left Arm; Cuff Size: Standard Hsfyrl704.7lb Arcrmw29ex BMI25.90kg/m2 BSA2.04m2 Encounters BCL Appointment Encounter Reason:BCL New Patient Visit,[ADDITIONAL REASON] 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 Cosmo Zambrano is a 52-year-old pleasant gentleman with a past medical history significant of paroxysmal SVT, intermittent palpitations, PACs, PVCs, and mitral valve prolapse. The patient presents to [facility] cardiology office for reestablishment of care. The [...] 25.0-29.9),Left chest pressure,PVC (premature ventricular contraction) 18-Apr-2023 16:66Xq6-Gkk-1362 16:15 [facility] cc: Henri Myers IV, MD [facility] Appointment Encounter Reason:[facility] F/U Chronic Conditions - The conditions include [...] SVT (supraventricular tachycardia),Intermittent palpitations,Premature atrial contraction 19-Dec-2017 16:70Vq5-Eaq-0937 17:40 [facility] CC- Henri Myers (PCP) [facility] Appointment Encounter Reason:[facility] F/U Chronic Conditions - The conditions include mitral valve disease and supraventricular tachycardia. The patient denies chest pain, claudication, dizziness, edema, fatigue, lightheadedness, palpitations, orthopnea, pre-syncopal episodes, shortness of breath or syncope.,[ADDITIONAL REASON] Follow up diagnostic procedure - Diagnostic tests include echocardiogram and holter monitor. Encounter Diagnosis:MVP (mitral valve prolapse),Paroxysmal SVT (supraventricular tachycardia) 01-Nov-2015 12:19Jl38-Akl-5788 12:55 [facility] Appointment Encounter Reason:Pre-operative consultation - The patient [...] (supraventricular tachycardia),MVP (mitral valve prolapse),Intermittent palpitations 04-Oct-2015 14:15Xj69-Ccj-2043 15:35 [facility] Payers Insurance Providers [facility] [employer] [address] Professional Claims [facility] [address] tel: Group Number:[id number] [facility] [address] [facility] [id number] [place] tel: Group Number:[id number] Guarantors Cosmo Hogan III [address] [facility] [place] [address] [place] tel:
--- OUTSIDE RECORDS SUMMARY | 2023-09-30 22:51 | External Medical Summary | Continuity of Care Document ---
Author Name Law Professor, System Address Unknown Organization Unknown Address Unknown Care Team Providers Care Room Clerk Name Role Phone JOCELINE MYERS Unavailable Unavailable Aniya Noriega MD Unavailable JOCELINE MYERS MD Unavailable KYREE GUIDRY MD Unavailable JONATHAN MADRIGAL MD Unavailable Jonathan Madrigal MD Unavailable Unavailable Antoinette Webber Unavailable Unavailable Conchita BRAUN II, Michelle Quintana Unavailable Jemmavatoma Marques MA, Ashley N Unavailable Unavailable Unavailable Unavailable Problems Asthma MD Aniya Noriega COVID-19 virus infection(U07 .1) (079.89) MD Aniya Noriega Comments:10/2021, 02/2022 Health education (Renamed fr om Encounter for health education)(Z71.9) (V65.40) APARNA Arango II Health education (Renamed fr om Encounter for health education)(Z71.9) (V65.40) APARNA Marques Ashley N Intermittent palpitations(R0 0.2) (785.1) MD Aniya Noriega Left chest pressure(R07.89) (786.59) MD Aniya Noriega Mitral regurgitation(I34.0) (424.0) MD Aniya Noriega Mitral Valve Prolapse MD Aniya Noriega MVP (mitral valve prolapse)(I34.1) (424.0) MD Aniya Noriega Overweight (BMI 25.0-29.9)(E66.3) (278.02) MD Aniya Noriega Paroxysmal SVT (supraventric [...] fx Varicole Status:Completed Comments:testical repair Echo Date:23-Oct-2015 Status:Vwvpfrrzi8-Htq-7432 MD Jonathan Madrigal- Procedure Note: See Note Family History Unknown Family Member Father Status:Active Comments:In good health. no heart disease Mother Status:Active Comments:In good health. no heart disease Sister 1 Status:Active Comments:In good health. no heart disease Social History Alcohol use:;Occasional alcohol use. Current work status:;Full-time. MD Aniya NoriegaWanderfly Marital status:;. Tobacco use:;Never smoker. Smoking Status Never smoked tobacco Sex Male Plan of Treatment Planned Procedures 2D Echo, Complete (77412) - ELECTIVE (BEYOND 2 weeks - MUST ENTER DATE OR TIME FRAME) Start:13-Jun-2024 Intent Comments:With or without IV contrast enhancement agent Extended wear monitor - 7 da ys (19531) - SOON (within 1 - 2 weeks) Start:18-Apr-2023 Intent Exercise Stress Test (ST) (66133) - SOON (within 1-2 weeks) Start:18-Apr-2023 Intent 2D Echo, Complete (66848) - SOON (within 1-2 weeks) Start:18-Apr-2023 Intent Comments:With or without IV contrast enhancement agent ELECTROCARDIOGRAM, COMPLETE (81638) Start:18-Apr-2023 Intent Holter Monitor Start:04-Oct-2015 Intent Planned Observations Lipid Panel w/Reflex LDLD Start:12-Jun-2024 14:06 Request METABOLIC PANEL, BASIC Start:12-Jun-2024 14:06 Request Comments:Fasting CBC & PLATELETS Start:12-Jun-2024 14:06 Request Instructions Exercise to Stay Healthy: ae jeet exercise Indication:Overweight (BMI 25.0-29.9) Start:18-Apr-2023 Instruction Type:Patient Education Follow Up with office if no improvement or symptoms worsen Indication:Premature atrial contraction Start:19-Dec-2017 Instruction Type:Provider Instructions for Treatment Results No Known Results No Result Information Available Vital Signs 13-Jun-2023 13:37 BP Zeoassav135rp[Hg] Comments:Pa tient Position: Sitting; Cuff Location: Right Arm; Cuff Size: Standard BP Tdfxhlrff13wt[Hg] Comments:Pa tient Position: Sitting; Cuff Location: Right Arm; Cuff Size: Standard 13-Jun-2023 13:37 Pulse78/min Comments:Pattern : Regular BP Vizrfteq568mj[Hg] Comments:Pa tient Position: Sitting; Cuff Location: Left Arm; Cuff Size: Standard BP Iuznltivx28sw[Hg] Comments:Pa tient Position: Sitting; Cuff Location: Left Arm; Cuff Size: Standard Donhhr67.8kg Yyzqtq062.34cm BMI27.30kg/m2 BSA2.09m2 18-Apr-2023 15:55 BP Uqmsisim445tb[Hg] Comments:Pa tient Position: Sitting; Cuff Location: Right Arm; Cuff Size: Standard BP Tiblstexp75fy[Hg] Comments:Pa tient Position: Sitting; Cuff Location: Right Arm; Cuff Size: Standard 18-Apr-2023 15:49 Hljjumtgpoy35.6f Pulse77/min Comments:Pattern : Regular BP Wpgarikx716qr[Hg] Comments:Pa tient Position: Sitting; Cuff Location: Left Arm; Cuff Size: Standard BP Kcxymydep81kv[Hg] Comments:Pa tient Position: Sitting; Cuff Location: Left Arm; Cuff Size: Standard Yfymxl08mv Rridxk242.34cm BMI27.06kg/m2 BSA2.08m2 19-Dec-2017 16:28 BP Llyyjexj477ff[Hg] Comments:Pa tient Position: Sitting; Cuff Location: Right Arm; Cuff Size: Standard BP Slkbsttrw19by[Hg] Comments:Pa tient Position: Sitting; Cuff Location: Right Arm; Cuff Size: Standard 19-Dec-2017 16:23 Pulse78/min Comments:Pattern : Regular BP Pjyudykq640ko[Hg] Comments:Pa tient Position: Sitting; Cuff Location: Left Arm; Cuff Size: Standard BP Jomgraitq30kb[Hg] Comments:Pa tient Position: Sitting; Cuff Location: Left Arm; Cuff Size: Standard Txtzoo390.125lb Ypsjyw78hd BMI26.24kg/m2 BSA2.05m2 01-Nov-2015 12:34 BP Atiqhkdt419kz[Hg] Comments:Pa tient Position: Sitting; Cuff Location: Right Arm; Cuff Size: Standard BP Hjucumzsu20yn[Hg] Comments:Pa tient Position: Sitting; Cuff Location: Right Arm; Cuff Size: Standard 01-Nov-2015 12:33 Pulse64/min Comments:Pattern : Regular BP Tczakbdv236ar[Hg] Comments:Pa tient Position: Sitting; Cuff Location: Left Arm; Cuff Size: Standard BP Bzhvthtku56zf[Hg] Comments:Pa tient Position: Sitting; Cuff Location: Left Arm; Cuff Size: Standard Lvjzlr169.1lb Jwsswn25yt BMI25.96kg/m2 BSA2.05m2 04-Oct-2015 15:09 BP Bjhspttw421kz[Hg] Comments:Pa tient Position: Sitting; Cuff Location: Right Arm; Cuff Size: Standard BP Iqwpsmmrr45qu[Hg] Comments:Pa tient Position: Sitting; Cuff Location: Right Arm; Cuff Size: Standard 04-Oct-2015 15:08 Pulse88/min Comments:Pattern : Regular BP Acaafbzy372ji[Hg] Comments:Pa tient Position: Sitting; Cuff Location: Left Arm; Cuff Size: Standard BP Bcxxzzxcx27wc[Hg] Comments:Pa tient Position: Sitting; Cuff Location: Left Arm; Cuff Size: Standard Grunlc773.7lb Vlnrjm24ny BMI25.90kg/m2 BSA2.04m2 Encounters Web Message/Clinical Note 20-Aug-2023 14:96Ev7-Yjt-2250 15:16 [facility] Appointment Encounter Reason:follow up - .FOLLOW UP.Mr. Cosmo Zambrano is a 52-year-old pleasant gentleman with a past medical history significant of paroxysmal SVT, intermittent palpitations, PACs, PVCs, and mitral valve prolapse. The patient presents to [facility] cardiology office for a close follow-up appointment. [...] from Encounter for health education),Mitral regurgitation 13-Jun-2023 13:50Os37-Aqh-1713 14:[address] [facility] .PLAN:Mr. Cosmo Zambrano III is a 53-year-old gentleman with a past medical history listed above who presents to [facility] cardiology for close follow-up appointment after recent [...] well as [facility]. Thank you for allowing [facility] cardiology to be a part of Mr. 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 Cosmo Zambrano is a 52-year-old pleasant gentleman with a past medical history significant of paroxysmal SVT, intermittent palpitations, PACs, PVCs, and mitral valve prolapse. The patient presents to [facility] cardiology office for reestablishment of care. The patient was previously seen in this clinic on 12/19/2017 by Jonathan Madrigal MD.*At this time, the patient has [...] 25.0-29.9),Left chest pressure,PVC (premature ventricular contraction) 18-Apr-2023 16:65Jm2-Fig-7159 16:[address] [facility] cc: Joceline Myers IV, MD [facility] Appointment Encounter Reason:[facility] F/U Chronic Conditions - The conditions include [...] SVT (supraventricular tachycardia),Intermittent palpitations,Premature atrial contraction 19-Dec-2017 16:18Yl7-Ecc-3022 17:[address] [facility] CC- Joceline Myers (PCP) [facility] Appointment Encounter Reason:[facility] F/U Chronic Conditions - The conditions include mitral valve disease and supraventricular tachycardia. The patient denies chest pain, claudication, dizziness, edema, fatigue, lightheadedness, palpitations, orthopnea, pre-syncopal episodes, shortness of breath or syncope.,[ADDITIONAL REASON] Follow up diagnostic procedure - Diagnostic tests include echocardiogram and holter monitor. Encounter Diagnosis:MVP (mitral valve prolapse),Paroxysmal SVT (supraventricular tachycardia) 01-Nov-2015 12:82Oa66-Rgs-2845 12:55 [facility] Appointment Encounter Reason:Pre-operative consultation - The patient [...] (supraventricular tachycardia),MVP (mitral valve prolapse),Intermittent palpitations 04-Oct-2015 14:37Vu92-Dtu-3235 15:35 [facility] Payers Insurance Providers [employer] [place] [address] [place] [address] tel: Group Number:[id number] [facility] [address] [place] [id number] tel: Group Number:[id number] Guarantors Cosmo S Samira III [address] [place] [address] tel:
--- OUTSIDE RECORDS SUMMARY | 2023-09-30 22:51 | External Medical Summary | Continuity of Care Document ---
Author Name Service Delivery Manager, System Address Unknown Organization Unknown Address Unknown Care Team Providers Care Sample Maker Name Role Phone HENRI MYERS Unavailable Unavailable Aniya Noriega MD Unavailable HENRI MYERS MD Unavailable [phone] KYREE GUIDRY MD Unavailable [phone] ZOHAIB MADRIGAL MD Unavailable Michelle Arango [...] fx Varicole Status:Completed Comments:testical repair Echo Date:23-Oct-2015 Status:[id number] MD Zohaib Madrigal- Procedure Note: See Note Family History Unknown Family Member Father Status:Active Comments:In good health. no heart disease Mother Status:Active Comments:In good health. no heart disease Sister 1 Status:Active Comments:In good health. no heart disease Social History Alcohol use:;Occasional alcohol use. Current work status:;Full-time. [employer] Arango- [employer] Marital status:;. Tobacco use:;Never smoker. Smoking Status Never smoked tobacco Sex Male Plan of Treatment Planned Procedures Extended wear monitor - 7 da ys (38038) - SOON (within 1 - 2 weeks) Start:18-Apr-2023 Intent Exercise Stress Test (ST) (15296) - SOON (within 1-2 weeks) Start:18-Apr-2023 Intent 2D Echo, Complete (14501) - SOON (within 1-2 weeks) Start:18-Apr-2023 Intent Comments:With or without IV contrast enhancement agent ELECTROCARDIOGRAM, COMPLETE (49803) Start:18-Apr-2023 Intent Holter Monitor Start:04-Oct-2015 Intent Planned Encounters Medical; Follow Up - f/u to echo, exercise stress, extended monitor CLINICAL ESTEBAN KINNEAR Start:13-Jun-2023 13:30 MD Aniya Noriega Appointment Request Instructions Exercise to Stay Healthy: josias marcano exercise Indication:Overweight (BMI 25.0-29.9) Start:18-Apr-2023 Instruction Type:Patient Education Follow Up with office if no improvement or symptoms worsen Indication:Premature atrial contraction Start:19-Dec-2017 Instruction Type:Provider Instructions for Treatment Results No Known Results No Result Information Available Vital Signs 18-Apr-2023 15:55 BP Rvtxhimi794ba[Hg] Comments:Pa tient Position: Sitting; Cuff Location: Right Arm; Cuff Size: Standard BP Orzudrhon62ks[Hg] Comments:Pa tient Position: Sitting; Cuff Location: Right Arm; Cuff Size: Standard 18-Apr-2023 15:49 Jbffvixqamk43.6f Pulse77/min Comments:Pattern : Regular BP Ldsdhjgn823am[Hg] Comments:Pa tient Position: Sitting; Cuff Location: Left Arm; Cuff Size: Standard BP Merrjnnkj73uz[Hg] Comments:Pa tient Position: Sitting; Cuff Location: Left Arm; Cuff Size: Standard Ogysje81rp Kuivgq440.34cm BMI27.06kg/m2 BSA2.08m2 19-Dec-2017 16:28 BP Mkocpdik466wd[Hg] Comments:Pa tient Position: Sitting; Cuff Location: Right Arm; Cuff Size: Standard BP Cdgssfvhb32tu[Hg] Comments:Pa tient Position: Sitting; Cuff Location: Right Arm; Cuff Size: Standard 19-Dec-2017 16:23 Pulse78/min Comments:Pattern : Regular BP Xevbixrn160sx[Hg] Comments:Pa tient Position: Sitting; Cuff Location: Left Arm; Cuff Size: Standard BP Mknmzqfvg29nh[Hg] Comments:Pa tient Position: Sitting; Cuff Location: Left Arm; Cuff Size: Standard Vyvrtl891.125lb Gtjrsm88dc BMI26.24kg/m2 BSA2.05m2 01-Nov-2015 12:34 BP Fccilinv765wy[Hg] Comments:Pa tient Position: Sitting; Cuff Location: Right Arm; Cuff Size: Standard BP Qmnbavykw61bj[Hg] Comments:Pa tient Position: Sitting; Cuff Location: Right Arm; Cuff Size: Standard 01-Nov-2015 12:33 Pulse64/min Comments:Pattern : Regular BP Epsivbhd915um[Hg] Comments:Pa tient Position: Sitting; Cuff Location: Left Arm; Cuff Size: Standard BP Dzzwywflk08lv[Hg] Comments:Pa tient Position: Sitting; Cuff Location: Left Arm; Cuff Size: Standard Rjlsby557.1lb Sskldw32ed BMI25.96kg/m2 BSA2.05m2 04-Oct-2015 15:09 BP Msaanmgg572gt[Hg] Comments:Pa tient Position: Sitting; Cuff Location: Right Arm; Cuff Size: Standard BP Rcbfgcshg52ql[Hg] Comments:Pa tient Position: Sitting; Cuff Location: Right Arm; Cuff Size: Standard 04-Oct-2015 15:08 Pulse88/min Comments:Pattern : Regular BP Nipndhoq596ka[Hg] Comments:Pa tient Position: Sitting; Cuff Location: Left Arm; Cuff Size: Standard BP Widudcojz32qg[Hg] Comments:Pa tient Position: Sitting; Cuff Location: Left Arm; Cuff Size: Standard Wfqupn599.7lb Nspxtx15nf BMI25.90kg/m2 BSA2.04m2 Encounters BCL Appointment Encounter Reason:[facility] New Patient Visit,[ADDITIONAL REASON] 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 Cosmo Zambrano is a 52-year-old pleasant gentleman with a past medical history significant of paroxysmal SVT, intermittent palpitations, PACs, PVCs, and mitral valve prolapse. The patient presents to [facility] cardiology office for reestablishment of care. [...] 25.0-29.9),Left chest pressure,PVC (premature ventricular contraction) 18-Apr-2023 16:43Zr0-Hhu-5647 16:[address] [facility] cc: Henri Myers IV, MD [facility] Appointment Encounter Reason:[facility] F/U Chronic Conditions - The conditions include [...] SVT (supraventricular tachycardia),Intermittent palpitations,Premature atrial contraction 19-Dec-2017 16:04Qc0-Dwb-8216 17:[address] [facility] CC- Henri Myers (PCP) [facility] Appointment Encounter Reason:[facility] F/U Chronic Conditions - The conditions include mitral valve disease and supraventricular tachycardia. The patient denies chest pain, claudication, dizziness, edema, fatigue, lightheadedness, palpitations, orthopnea, pre-syncopal episodes, shortness of breath or syncope.,[ADDITIONAL REASON] Follow up diagnostic procedure - Diagnostic tests include echocardiogram and holter monitor. Encounter Diagnosis:MVP (mitral valve prolapse),Paroxysmal SVT (supraventricular tachycardia) 01-Nov-2015 12:89Sm39-Wxa-4004 12:55 [facility] Appointment Encounter Reason:Pre-operative consultation - The [...] (supraventricular tachycardia),MVP (mitral valve prolapse),Intermittent palpitations 04-Oct-2015 14:24Sd61-Dvf-6630 15:[address] [facility] Payers Insurance Providers [facility] [employer] [address] [employer] [place] [address] tel: Group Number:[id number] [facility] [address] [facility] [id number] [place] tel: Group Number:[id number] [employer] Cosmo Hogan III [address] [facility] [place] [address] [place] tel:
--- OUTSIDE RECORDS SUMMARY | 2023-09-30 22:51 | External Medical Summary | Continuity of Care Document ---
Author Name Lead Informatica Developer, System Address Unknown Organization Unknown Address Unknown Care Team Providers Care Scraper Operator Name Role Phone HENRI MYERS Unavailable Unavailable Aniya Noriega MD Unavailable HENRI MYERS MD Unavailable KYREE GUIDRY MD Unavailable ZOHAIB MADRIGAL MD Unavailable Zohaib Madrigal MD Unavailable Unavailable Antoinette Webber Unavailable Unavailable Michelle Arango MA Unavailable Unavailab le Unavailable Unavailable Problems Asthma APARAN Arango COVID-19 virus infection(U07 .1) (079.89) APARNA [...] fx Varicole Status:Completed Comments:testical repair Echo Date:23-Oct-2015 Status:[id number]-Abm-[id number] MD Zohaib Madrigal- Procedure Note: See Note Family History Unknown Family Member Father Status:Active Comments:In good health. no heart disease Mother Status:Active Comments:In good health. no heart disease Sister 1 Status:Active Comments:In good health. no heart disease Social History Alcohol use:;Occasional alcohol use. Current work status:;Full-time. [employer] Arango[employer] Marital status:;. Tobacco use:;Never smoker. Smoking Status Never smoked tobacco Sex Male Plan of Treatment Planned Procedures Extended wear monitor - 7 da ys (10233) - SOON (within 1 - 2 weeks) Start:18-Apr-2023 Intent Exercise Stress Test (ST) (36865) - SOON (within 1-2 weeks) Start:18-Apr-2023 Intent 2D Echo, Complete (66347) - SOON (within 1-2 weeks) Start:18-Apr-2023 Intent Comments:With or without IV contrast enhancement agent ELECTROCARDIOGRAM, COMPLETE (07404) Start:18-Apr-2023 Intent Holter Monitor Start:04-Oct-2015 Intent Planned Encounters Medical; Follow Up - f/u to echo, exercise stress, extended monitor CLINICAL ESTEBAN SHELO[place]A Start:13-Jun-2023 13:30 MD Aniya Noriega Appointment Request Instructions Exercise to Stay Healthy: josias marcano exercise Indication:Overweight (BMI 25.0-29.9) Start:18-Apr-2023 Instruction Type:Patient Education Follow Up with office if no improvement or symptoms worsen Indication:Premature atrial contraction Start:19-Dec-2017 Instruction Type:Provider Instructions for Treatment Results No Known Results No Result Information Available Vital Signs 18-Apr-2023 15:55 BP Aouqlqxh408rt[Hg] Comments:Pa tient Position: Sitting; Cuff Location: Right Arm; Cuff Size: Standard BP Rqjtcluwz23os[Hg] Comments:Pa tient Position: Sitting; Cuff Location: Right Arm; Cuff Size: Standard 18-Apr-2023 15:49 Ubxyjajlzei78.6f Pulse77/min Comments:Pattern : Regular BP Kgyvuyrd362nq[Hg] Comments:Pa tient Position: Sitting; Cuff Location: Left Arm; Cuff Size: Standard BP Jaxutvqes66bx[Hg] Comments:Pa tient Position: Sitting; Cuff Location: Left Arm; Cuff Size: Standard Cmhjln59it Vypnlp520.34cm BMI27.06kg/m2 BSA2.08m2 19-Dec-2017 16:28 BP Qgvkiyxo779zi[Hg] Comments:Pa tient Position: Sitting; Cuff Location: Right Arm; Cuff Size: Standard BP Diceqjqvx40sy[Hg] Comments:Pa tient Position: Sitting; Cuff Location: Right Arm; Cuff Size: Standard 19-Dec-2017 16:23 Pulse78/min Comments:Pattern : Regular BP Ldmzyrjt656ak[Hg] Comments:Pa tient Position: Sitting; Cuff Location: Left Arm; Cuff Size: Standard BP Abtfovang42uo[Hg] Comments:Pa tient Position: Sitting; Cuff Location: Left Arm; Cuff Size: Standard Urhjwv219.125lb Pmchzd09qq BMI26.24kg/m2 BSA2.05m2 01-Nov-2015 12:34 BP Nswdkssj276bf[Hg] Comments:Pa tient Position: Sitting; Cuff Location: Right Arm; Cuff Size: Standard BP Dtaugpjhd97zy[Hg] Comments:Pa tient Position: Sitting; Cuff Location: Right Arm; Cuff Size: Standard 01-Nov-2015 12:33 Pulse64/min Comments:Pattern : Regular BP Dhjaxmrm428xv[Hg] Comments:Pa tient Position: Sitting; Cuff Location: Left Arm; Cuff Size: Standard BP Lvgtxeufv89mg[Hg] Comments:Pa tient Position: Sitting; Cuff Location: Left Arm; Cuff Size: Standard Usfpnq569.1lb Hnohea48vd BMI25.96kg/m2 BSA2.05m2 04-Oct-2015 15:09 BP Ejapmfnn748mr[Hg] Comments:Pa tient Position: Sitting; Cuff Location: Right Arm; Cuff Size: Standard BP Ewlntxfxr82il[Hg] Comments:Pa tient Position: Sitting; Cuff Location: Right Arm; Cuff Size: Standard 04-Oct-2015 15:08 Pulse88/min Comments:Pattern : Regular BP Buajbbwz555rt[Hg] Comments:Pa tient Position: Sitting; Cuff Location: Left Arm; Cuff Size: Standard BP Izxktqrox63hg[Hg] Comments:Pa tient Position: Sitting; Cuff Location: Left Arm; Cuff Size: Standard Exzuak302.7lb Hyfvow01hw BMI25.90kg/m2 BSA2.04m2 Encounters [facility] Appointment Encounter Reason:BCL New Patient Visit,[ADDITIONAL REASON] 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 Cosmo Zambrano is [...] 25.0-29.9),Left chest pressure,PVC (premature ventricular contraction) 18-Apr-2023 16:47Tk2-Vlh-1221 16:15 [facility] cc: Henri Myers IV, MD [facility] Appointment Encounter Reason:[facility] F/U Chronic Conditions - The conditions include [...] SVT (supraventricular tachycardia),Intermittent palpitations,Premature atrial contraction 19-Dec-2017 16:97Gl0-Bas-5301 17:40 [facility] CC- Henri Myers (PCP) [facility] Appointment Encounter Reason:[facility] F/U Chronic Conditions - The conditions include mitral valve disease and supraventricular tachycardia. The patient denies chest pain, claudication, dizziness, edema, fatigue, lightheadedness, palpitations, orthopnea, pre-syncopal episodes, shortness of breath or syncope.,[ADDITIONAL REASON] Follow up diagnostic procedure - Diagnostic tests include echocardiogram and holter monitor. Encounter Diagnosis:MVP (mitral valve prolapse),Paroxysmal SVT (supraventricular tachycardia) 01-Nov-2015 12:08Iz48-Rrm-3512 12:55 [facility] Appointment Encounter Reason:Pre-operative consultation - The [...] (supraventricular tachycardia),MVP (mitral valve prolapse),Intermittent palpitations 04-Oct-2015 14:15Sh41-Ulf-7139 15:35 [facility] Payers Insurance Providers [facility] [employer] [address] Professional Claims [facility] [address] tel: Group Number:[id number] [facility] [address] [facility] [id number] [place] tel: Group Number:[id number] Guarant[employer] Cosmo Hogan III [address] [facility] [place] [address] [place] tel:
--- OUTSIDE RECORDS SUMMARY | 2023-09-30 22:51 | External Medical Summary | Continuity of Care Document ---
Author Name Graduate Assistant Athletic Trainer, System Address Unknown Organization Unknown Address Unknown Care Team Providers Care Ammunition And Explosives Handler Name Role Phone HENRI MYERS Unavailable Unavailable Aniya Noriega MD Unavailable [phone] HENRI MYERS MD Unavailable KYREE GUIDRY MD Unavailable [phone] ZOHAIB MADRIGAL MD Unavailable Zohaib Madrigal MD [...] fx Varicole Status:Completed Comments:testical repair Echo Date:23-Oct-2015 Status:[id number]-Kmi-1456 MD Zohaib Madrigal- Procedure Note: See Note Family History Unknown Family Member Father Status:Active Comments:In good health. no heart disease Mother Status:Active Comments:In good health. no heart disease Sister 1 Status:Active Comments:In good health. no heart disease Social History Alcohol use:;Occasional alcohol use. Current work status:;Full-time. [employer] Arango- [employer] Marital status:;. Tobacco use:;Never smoker. Smoking Status Never smoked tobacco Sex Male Plan of Treatment Planned Procedures Extended wear monitor - 7 da ys (79316) - SOON (within 1 - 2 weeks) Start:18-Apr-2023 Intent Exercise Stress Test (ST) (79957) - SOON (within 1-2 weeks) Start:18-Apr-2023 Intent 2D Echo, Complete (25490) - SOON (within 1-2 weeks) Start:18-Apr-2023 Intent Comments:With or without IV contrast enhancement agent ELECTROCARDIOGRAM, COMPLETE (34085) Start:18-Apr-2023 Intent Holter Monitor Start:04-Oct-2015 Intent Planned Encounters Medical; Follow Up - f/u to echo, exercise stress, extended monitor CLINICAL ESTEBAN [place] Start:13-Jun-2023 13:30 MD Aniya Noriega Appointment Request Instructions Exercise to Stay Healthy: josias marcano exercise Indication:Overweight (BMI 25.0-29.9) Start:18-Apr-2023 Instruction Type:Patient Education Follow Up with office if no improvement or symptoms worsen Indication:Premature atrial contraction Start:19-Dec-2017 Instruction Type:Provider Instructions for Treatment Results No Known Results No Result Information Available Vital Signs 18-Apr-2023 15:55 BP Fffoorjx934da[Hg] Comments:Pa tient Position: Sitting; Cuff Location: Right Arm; Cuff Size: Standard BP Elwdnctam91xn[Hg] Comments:Pa tient Position: Sitting; Cuff Location: Right Arm; Cuff Size: Standard 18-Apr-2023 15:49 Leynbcqeyjs30.6f Pulse77/min Comments:Pattern : Regular BP Hcvmanlb574dq[Hg] Comments:Pa tient Position: Sitting; Cuff Location: Left Arm; Cuff Size: Standard BP Bdjuavodu55ng[Hg] Comments:Pa tient Position: Sitting; Cuff Location: Left Arm; Cuff Size: Standard Btqxfn63nu Hzjovz708.34cm BMI27.06kg/m2 BSA2.08m2 19-Dec-2017 16:28 BP Wnffdcim212ri[Hg] Comments:Pa tient Position: Sitting; Cuff Location: Right Arm; Cuff Size: Standard BP Fvctoigsg06lz[Hg] Comments:Pa tient Position: Sitting; Cuff Location: Right Arm; Cuff Size: Standard 19-Dec-2017 16:23 Pulse78/min Comments:Pattern : Regular BP Lyqqytob773jn[Hg] Comments:Pa tient Position: Sitting; Cuff Location: Left Arm; Cuff Size: Standard BP Hpnrvwwgj84si[Hg] Comments:Pa tient Position: Sitting; Cuff Location: Left Arm; Cuff Size: Standard Yxensg952.125lb Tcfuhb48ga BMI26.24kg/m2 BSA2.05m2 01-Nov-2015 12:34 BP Mwuhnsfs296xn[Hg] Comments:Pa tient Position: Sitting; Cuff Location: Right Arm; Cuff Size: Standard BP Ltuvwzlsm93pi[Hg] Comments:Pa tient Position: Sitting; Cuff Location: Right Arm; Cuff Size: Standard 01-Nov-2015 12:33 Pulse64/min Comments:Pattern : Regular BP Aieezavv957kz[Hg] Comments:Pa tient Position: Sitting; Cuff Location: Left Arm; Cuff Size: Standard BP Mdaymftoz23uq[Hg] Comments:Pa tient Position: Sitting; Cuff Location: Left Arm; Cuff Size: Standard Gsrfqq411.1lb Zihqyr70yf BMI25.96kg/m2 BSA2.05m2 04-Oct-2015 15:09 BP Fqjarvcy853bf[Hg] Comments:Pa tient Position: Sitting; Cuff Location: Right Arm; Cuff Size: Standard BP Txdbgoejj75mm[Hg] Comments:Pa tient Position: Sitting; Cuff Location: Right Arm; Cuff Size: Standard 04-Oct-2015 15:08 Pulse88/min Comments:Pattern : Regular BP Khptzrbs307ln[Hg] Comments:Pa tient Position: Sitting; Cuff Location: Left Arm; Cuff Size: Standard BP Jeaeplaal26hc[Hg] Comments:Pa tient Position: Sitting; Cuff Location: Left Arm; Cuff Size: Standard Ayplie184.7lb Eqcojg17ju BMI25.90kg/m2 BSA2.04m2 Encounters [facility] Appointment Encounter Reason:[facility] New Patient Visit,[ADDITIONAL REASON] 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 Cosmo Zambrano is a 52-year-old pleasant gentleman with a past medical history significant of paroxysmal SVT, intermittent palpitations, PACs, PVCs, and mitral valve prolapse. The patient presents to [facility] cardiology office for reestablishment of care. The [...] 25.0-29.9),Left chest pressure,PVC (premature ventricular contraction) 18-Apr-2023 16:20Dz9-Qvd-1346 16:15 [facility] cc: Henri Myers IV, MD [facility] Appointment Encounter Reason:[facility] F/U Chronic Conditions - The conditions [...] SVT (supraventricular tachycardia),Intermittent palpitations,Premature atrial contraction 19-Dec-2017 16:02Sv3-Cms-8400 17:40 [facility] CC- Henri Myers (PCP) [facility] Appointment Encounter Reason:[facility] F/U Chronic Conditions - The conditions include mitral valve disease and supraventricular tachycardia. The patient denies chest pain, claudication, dizziness, edema, fatigue, lightheadedness, palpitations, orthopnea, pre-syncopal episodes, shortness of breath or syncope.,[ADDITIONAL REASON] Follow up diagnostic procedure - Diagnostic tests include echocardiogram and holter monitor. Encounter Diagnosis:MVP (mitral valve prolapse),Paroxysmal SVT (supraventricular tachycardia) 01-Nov-2015 12:78Xp18-Ijw-1853 12:55 [facility] Appointment Encounter Reason:Pre-operative consultation - [...] (supraventricular tachycardia),MVP (mitral valve prolapse),Intermittent palpitations 04-Oct-2015 14:20Uk88-Gze-0301 15:35 [facility] Payers Insurance Providers [facility] [employer] [address] Professional Claims [facility] [address] tel: Group Number:[id number] [facility] [address] [facility] [id number] [place] tel: Group Number:[id number] Guarantors Cosmo Hogan III [address] [facility] [place] [address] [place] tel:
--- OUTSIDE RECORDS SUMMARY | 2023-09-30 22:51 | External Medical Summary | Continuity of Care Document ---
Author Name Unknown Organization [facility] [address] [id number] Care Team Providers Care Service Liaison Representative Name Role Phone Henri Myers Primary Care Physician [phone] Encounter [facility] CORY [id number] Date(s): 05/30/23 - 05/30/23 [facility] [phone] [id number] [phone] Discharge Disposition: Home or Self Care Attending Physician: MD Hari, Aniya Garvey Referring Physician: MD Noriega Salih Nigel Results Radiology Reports * Exam Date Time Procedure Performing Provider Status 05/30/23 1:27 PM Echo TransTHORacic TTE Complete Marvin Ramirez; Final Notes: (Echo TransTHORacic TTE Complete) Reason For Exam: (BCL) ECHO R00.2 Report Transthoracic Echocardiogram [email or web address] [address] [address] Phone - [phone] Patient Name:Sherie Hogan. Sex:M Acct:[id number] Acc:[id number] Test Date:05/30/2023 :1970 Wt:194 Ht:70" Age:53 Stressor: Technologist:Marvin Ramirez RDCS Indications:R00.2 Desc:Palpitations Procedures:43980 Desc:Complete 2D Echocardiogram w/ M-mode, Color Flow & Doppler -- MMode Measurements -- [Normals] Aortic Root: 3.46cm [2.0 - 3.7cm] Ascend Ao: 3.05cm [<3.6cm] Left Atrium: 3.7cm [1.9 - 4.0cm] LAV Index: 22.3mL/m2 [<35 ml/m2] LV End Diastole: 4.2cm [<6] LV End Systole: 2.6cm [2.5 - 4.1cm] Septum: 1.1cm [0.7 - 1.1cm] Posterior Wall: 1.3cm [0.7 - 1.1cm] RVD1-End Diast.: 3.6cm [2.5-4.1 cm] TAPSE: 22mm [>16.9 mm] EF ca% [>51%] TR Anthony.: 165cm/s [<280 cm/s] Est. RAP: 8mmHg [3 mmHg] RVSP: 19mmHg [<35mmHg] LV mass/BSA: 86g/m2 [F<96g/m2; M<116g/m2] Blood Pressure: 120/84 -- Mitral Valve -- [Normals] E Anthony: 0.59m/s e Anthony: 0.11m/s E/e ratio: 5.36 [<15] Decel Time: 265msec [160-240] PHT: 77msec [<90ms] A Anthony.: 0.56m/s E/A ratio: 1.05 [> 1] -- Aortic Valve -- [Normals] LIZZIE: 4.79cm? [2.0-4.0cm2] Peak Ao Anthony: 0.93m/s [<2.0 m/s] Peak P.5mmHg Relevant Hx: Abnormal EKG Mitral Valve Prolapse PFO Left Ventricle: The calculated left ventricular ejection fraction is 62%. Normal overall left ventricular systolic function. Normal left ventricular size. Normal left ventricular thickness. Normal diastolic function. There is mild basal septal hypertrophy. There are no visualized wall motion abnormalities. No thrombus visualized. Right Ventricle: The right ventricular function is normal. Normal right ventricular chamber size. Atria: Normal left atrial size. Normal right atrial size. Mitral Valve: The mitral valve leaflets are mildly thickened. There is minimal mitral regurgitation by color Doppler analysis. Aortic Valve: The aortic valve is a normal appearing trileaflet valve. No aortic insufficiency noted. The peak velocity across the aortic valve is 0.93 m/s. There is no aortic stenosis present. Tricuspid Valve: Normal structure. Tricuspid regurgitant velocity measured 165 cm/s. Right atrial pressure is estimated at 8 mmHg. The right ventricular systolic pressure is 19 mmHg which demonstrates no pulmonary hypertension. Doppler color flow analysis shows mild tricuspid regurgitation. Pulmonic Valve: Normal structure. Doppler color flow analysis shows minimal pulmonic regurgitation. Pericardium: There is no pericardial effusion. Great Vessels: Normal aortic root and ascending aorta. Other: No intracardiac masses are identified. The image quality of this study is fair. The patient was in sinus rhythm during the study. Blood pressure is 120/84. Conclusions: Normal overall left ventricular systolic function. The calculated left ventricular ejection fraction is 62%. There is mild basal septal hypertrophy. (No LVOT obstruction). No MVP noted. There is mild tricuspid regurgitation. Date completed: 05/30/23 1:46:48 PM cc: Henri Myers at [phone] . Final Dictated by:MD Durham Michael B Dictated DT/TM:05/30/2023 2:16 Signed by:MD Durham Michael B Signed (Electronic Signature):05/30/2023 1:46 p Social History Social History Type Response Sex Male Exercise stress test study * Event Display: Stress Test Authored Date: [id number] Exercise Treadmill Report [email or web address] [address] [place] [address] Phone - [phone] Patient Name:Sherie Hogan. Sex:Leandra Acct:[id number] Acc: Test Date:05/30/2023 :1970 Wt:194 Ht:71" Age:53 Stressor:Natividad Dumas RN Technologist: Indications:R07.9 Desc:Chest pain- unspecified Procedures:[id number] Desc:Cardiac Stress Test Target HR (85% Max): 143 bpm Relevant Hx: Abnormal EKG, SVT, PFO, Palpitations (patient reported symptom) Asthma, MVP, Dyspnea (patient reported symptom) Stress Protocol: Ramped Anatoly Mets: 12.6 Time: 10:51 Minutes HR Range: 73 bpm at rest to 169 bpm max stress. (101% of max. HR) 1" HR Recovery: 23 (target > 12) BP Range: 118 /84 mmHg at rest to 159 / 77 mmHg at peak stress, recovering to 111/86. HR Response: Normal heart rate response. Thompson Risk Score: Thompson Risk Score is 10.5, which categorizes the patient as low risk. Rate-Pressure Prod.: 99177 (target > 25,000) BP Response: Normal blood pressure response. Aerobic Capacity: Good Termination: Reached target heart rate. Symptoms: Dyspnea. Symptoms Relieved: in recovery Rest: Normal sinus rhythm within normal limits Stress: Non-diagnostic ST-T wave changes. Arrhythmia: No significant arrhythmias. Conclusions: Normal exercise stress test. Date completed: 05/30/23 2:06:04 PM cc: Henri Myers at [phone] . * Event Display: Stress Test Authored Date: [id number] Heart Transthoracic * MD Herminio, Zohaib B: VERIFY, VERIFY, PERFORM Event Display: Report Authored Date: [id number] Transthoracic Echocardiogram [email or web address] [address] [address] Phone - [phone] Patient Name:Sherie Hogan. Sex:Leandra Acct:[id number] Acc:[id number] Test Date:05/30/2023 :1970 Wt:194 Ht:70" Age:53 Stressor: Technologist:Marvin Ramirez RDCS Indications:R00.2 Desc:Palpitations Procedures:[id number] Desc:Complete 2D Echocardiogram w/ M-mode, Color Flow & Doppler -- MMode Measurements -- [Normals] Aortic Root: 3.46cm [2.0 - 3.7cm] Ascend Ao: 3.05cm [<3.6cm] Left Atrium: 3.7cm [1.9 - 4.0cm] LAV Index: 22.3mL/m2 [<35 ml/m2] LV End Diastole: 4.2cm [<6] LV End Systole: 2.6cm [2.5 - 4.1cm] Septum: 1.1cm [0.7 - 1.1cm] Posterior Wall: 1.3cm [0.7 - 1.1cm] RVD1-End Diast.: 3.6cm [2.5-4.1 cm] TAPSE: 22mm [>16.9 mm] EF ca% [>51%] TR Anthony.: 165cm/s [<280 cm/s] Est. RAP: 8mmHg [3 mmHg] RVSP: 19mmHg [<35mmHg] LV mass/BSA: 86g/m2 [F<96g/m2; M<116g/m2] Blood Pressure: 120/84 -- Mitral Valve -- [Normals] E Anthony: 0.59m/s e Anthoyn: 0.11m/s E/e ratio: 5.36 [<15] Decel Time: 265msec [160-240] PHT: 77msec [<90ms] A Anthony.: 0.56m/s E/A ratio: 1.05 [> 1] -- Aortic Valve -- [Normals] LIZZIE: 4.79cm? [2.0-4.0cm2] Peak Ao Anthony: 0.93m/s [<2.0 m/s] Peak P.5mmHg Relevant Hx: Abnormal EKG Mitral Valve Prolapse PFO Left Ventricle: The calculated left ventricular ejection fraction is 62%. Normal overall left ventricular systolic function. Normal left ventricular size. Normal left ventricular thickness. Normal diastolic function. There is mild basal septal hypertrophy. There are no visualized wall motion abnormalities. No thrombus visualized. Right Ventricle: The right ventricular function is normal. Normal right ventricular chamber size. Atria: Normal left atrial size. Normal right atrial size. Mitral Valve: The mitral valve leaflets are mildly thickened. There is minimal mitral regurgitation by color Doppler analysis. Aortic Valve: The aortic valve is a normal appearing trileaflet valve. No aortic insufficiency noted. The peak velocity across the aortic valve is 0.93 m/s. There is no aortic stenosis present. Tricuspid Valve: Normal structure. Tricuspid regurgitant velocity measured 165 cm/s. Right atrial pressure is estimated at 8 mmHg. The right ventricular systolic pressure is 19 mmHg which demonstrates no pulmonary hypertension. Doppler color flow analysis shows mild tricuspid regurgitation. Pulmonic Valve: Normal structure. Doppler color flow analysis shows minimal pulmonic regurgitation. Pericardium: There is no pericardial effusion. Great Vessels: Normal aortic root and ascending aorta. Other: No intracardiac masses are identified. The image quality of this study is fair. The patient was in sinus rhythm during the study. Blood pressure is 120/84. Conclusions: Normal overall left ventricular systolic function. The calculated left ventricular ejection fraction is 62%. There is mild basal septal hypertrophy. (No LVOT obstruction). No MVP noted. There is mild tricuspid regurgitation. Date completed: 05/30/23 1:46:48 PM cc: Henri Myers at [phone] . Final Dictated by:MD Durham Michael B Dictated DT/TM:05/30/2023 2:16 Signed by:MD Durham Michael B Signed (Electronic Signature):05/30/2023 1:46 p Patient Care team information Care Team Personnel Name: MD Lucia, Henri Stauffer Position: Referring DIRECT Member Role: Primary Care Provider Address: Address: [facility] Family [facility], [address] [place] [address]
--- OUTSIDE RECORDS SUMMARY | 2023-09-30 22:51 | External Medical Summary | Continuity of Care Document ---
Author Name [employer], System Address Unknown Organization Unknown Address Unknown Care Team Providers Care Production Material Handler Name Role Phone HENRI MYERS Unavailable [...] fx Varicole Status:Completed Comments:testical repair Echo Date:23-Oct-2015 Status:[id number] MD Zohaib Madrigal- Procedure Note: See Note Family History Unknown Family Member Father Status:Active Comments:In good health. no heart disease Mother Status:Active Comments:In good health. no heart disease Sister 1 Status:Active Comments:In good health. no heart disease Social History Alcohol use:;Occasional alcohol use. Current work status:;Full-time. [employer] Marital status:;. Tobacco use:;Never smoker. Smoking Status Never smoked tobacco Sex Male Plan of Treatment Planned Procedures Extended wear monitor - 7 da ys (75984) - SOON (within 1 - 2 weeks) Start:18-Apr-2023 Intent Exercise Stress Test (ST) (86496) - SOON (within 1-2 weeks) Start:18-Apr-2023 Intent 2D Echo, Complete (12824) - SOON (within 1-2 weeks) Start:18-Apr-2023 Intent Comments:With or without IV contrast enhancement agent ELECTROCARDIOGRAM, COMPLETE (72950) Start:18-Apr-2023 Intent Holter Monitor Start:04-Oct-2015 Intent Instructions Exercise to Stay Healthy: josias marcano exercise Indication:Overweight (BMI 25.0-29.9) Start:18-Apr-2023 Instruction Type:Patient Education Follow Up with office if no improvement or symptoms worsen Indication:Premature atrial contraction Start:19-Dec-2017 Instruction Type:Provider Instructions for Treatment Results No Known Results No Result Information Available Vital Signs 18-Apr-2023 15:55 BP Fcjmunoq772hz[Hg] Comments:Pa tient Position: Sitting; Cuff Location: Right Arm; Cuff Size: Standard BP Xskzbyzcb87uz[Hg] Comments:Pa tient Position: Sitting; Cuff Location: Right Arm; Cuff Size: Standard 18-Apr-2023 15:49 Hopeenyvmiw76.6f Pulse77/min Comments:Pattern : Regular BP Lxgkblyi405uj[Hg] Comments:Pa tient Position: Sitting; Cuff Location: Left Arm; Cuff Size: Standard BP Evhasburc13wf[Hg] Comments:Pa tient Position: Sitting; Cuff Location: Left Arm; Cuff Size: Standard Huggqs65vm Dtabke639.34cm BMI27.06kg/m2 BSA2.08m2 19-Dec-2017 16:28 BP Dhlunwux601pz[Hg] Comments:Pa tient Position: Sitting; Cuff Location: Right Arm; Cuff Size: Standard BP Zpgotruee22pn[Hg] Comments:Pa tient Position: Sitting; Cuff Location: Right Arm; Cuff Size: Standard 19-Dec-2017 16:23 Pulse78/min Comments:Pattern : Regular BP Jftgbjew037dj[Hg] Comments:Pa tient Position: Sitting; Cuff Location: Left Arm; Cuff Size: Standard BP Tymbqhzxx90kq[Hg] Comments:Pa tient Position: Sitting; Cuff Location: Left Arm; Cuff Size: Standard Naruwy668.125lb Bwykxn53vl BMI26.24kg/m2 BSA2.05m2 01-Nov-2015 12:34 BP Cafxkccx384aa[Hg] Comments:Pa tient Position: Sitting; Cuff Location: Right Arm; Cuff Size: Standard BP Qwqtlsmxu59pr[Hg] Comments:Pa tient Position: Sitting; Cuff Location: Right Arm; Cuff Size: Standard 01-Nov-2015 12:33 Pulse64/min Comments:Pattern : Regular BP Rncqcujn411gn[Hg] Comments:Pa tient Position: Sitting; Cuff Location: Left Arm; Cuff Size: Standard BP Edwycyrao89je[Hg] Comments:Pa tient Position: Sitting; Cuff Location: Left Arm; Cuff Size: Standard Ytwqut433.1lb Yzvzbu27bg BMI25.96kg/m2 BSA2.05m2 04-Oct-2015 15:09 BP Lgybfdmv782eq[Hg] Comments:Pa tient Position: Sitting; Cuff Location: Right Arm; Cuff Size: Standard BP Ixmtgjyyl02aw[Hg] Comments:Pa tient Position: Sitting; Cuff Location: Right Arm; Cuff Size: Standard 04-Oct-2015 15:08 Pulse88/min Comments:Pattern : Regular BP Vjhaanwr335ry[Hg] Comments:Pa tient Position: Sitting; Cuff Location: Left Arm; Cuff Size: Standard BP Ugtxwichm89vh[Hg] Comments:Pa tient Position: Sitting; Cuff Location: Left Arm; Cuff Size: Standard Kofrgd570.7lb Yecsie42xt BMI25.90kg/m2 BSA2.04m2 Encounters BCL Appointment Encounter Reason:BCL New Patient Visit,[ADDITIONAL REASON] 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 Cosmo Zambrano is a 52-year-old pleasant gentleman with a past medical history significant of paroxysmal SVT, intermittent palpitations, PACs, PVCs, and mitral valve prolapse. The patient presents to [facility] cardiology office for reestablishment of care. The [...] 25.0-29.9),Left chest pressure,PVC (premature ventricular contraction) 18-Apr-2023 16:14Tj7-Nzv-8239 16:[address] [facility] cc: Henri Myers IV, MD [facility] Appointment Encounter Reason:BCL F/U Chronic Conditions [...] SVT (supraventricular tachycardia),Intermittent palpitations,Premature atrial contraction 19-Dec-2017 16:10Me9-Rhq-8262 17:[address] [facility] CC- Henri Myers (PCP) [facility] Appointment Encounter Reason:BCL F/U Chronic Conditions - The conditions include mitral valve disease and supraventricular tachycardia. The patient denies chest pain, claudication, dizziness, edema, fatigue, lightheadedness, palpitations, orthopnea, pre-syncopal episodes, shortness of breath or syncope.,[ADDITIONAL REASON] Follow up diagnostic procedure - Diagnostic tests include echocardiogram and holter monitor. Encounter Diagnosis:MVP (mitral valve prolapse),Paroxysmal SVT (supraventricular tachycardia) 01-Nov-2015 12:87Js24-Omu-4204 12:[address] [facility] BCL Appointment Encounter Reason:Pre-operative consultation - The [...] (supraventricular tachycardia),MVP (mitral valve prolapse),Intermittent palpitations 04-Oct-2015 14:06Pt07-Psj-8974 15:[address] [facility] Payers Insurance Providers [facility] [employer] [address] [employer] [place] [address] [place] tel: Group Number:[id number] [facility] [address] [facility] [id number] [place] tel: Group Number:[id number] Guarantors Cosmo Hogan III [address] [id number] tel:
--- OUTSIDE RECORDS SUMMARY | 2023-09-30 22:51 | External Medical Summary | Continuity of Care Document ---
Author Name Supervisor [employer], System Address Unknown Organization Unknown Address Unknown Care Team Providers Care Biology Professor Name Role Phone HENRI MYERS Unavailable Unavailable Aniya Noriega MD Unavailable HENRI MYERS MD Unavailable KYREE GUIDRY MD Unavailable [phone] ZOHAIB MADRIGAL MD Unavailable Zohaib Madrigal MD Unavailable Unavailable Antoinette Webber Unavailable Unavailable Michelle Arango MA Unavailable Unavailab mitzi Marques MA, Ashley N Unavailable Unavailable Unavailable [...] fx Varicole Status:Completed Comments:testical repair Echo Date:23-Oct-2015 Status:[id number]-Nkh-6946 MD Zohaib Madrigal- Procedure Note: See Note Family History Unknown Family Member Father Status:Active Comments:In good health. no heart disease Mother Status:Active Comments:In good health. no heart disease Sister 1 Status:Active Comments:In good health. no heart disease Social History Alcohol use:;Occasional alcohol use. Current work status:;Full-time. MD Aniya [employer] Marital status:;. Tobacco use:;Never smoker. Smoking Status Never smoked tobacco Sex Male Plan of Treatment Planned Procedures 2D Echo, Complete (99546) - ELECTIVE (BEYOND 2 weeks - MUST ENTER DATE OR TIME FRAME) Start:13-Jun-2024 Intent Comments:With or without IV contrast enhancement agent Extended wear monitor - 7 da ys (95604) - SOON (within 1 - 2 weeks) Start:18-Apr-2023 Intent Exercise Stress Test (ST) (57255) - SOON (within 1-2 weeks) Start:18-Apr-2023 Intent 2D Echo, Complete (52715) - SOON (within 1-2 weeks) Start:18-Apr-2023 Intent Comments:With or without IV contrast enhancement agent ELECTROCARDIOGRAM, COMPLETE (94303) Start:18-Apr-2023 Intent Holter Monitor Start:04-Oct-2015 Intent Planned [...] Information Available Vital Signs 13-Jun-2023 13:37 BP Nfkeeblq364di[Hg] Comments:Pa tient Position: Sitting; Cuff Location: Right Arm; Cuff Size: Standard BP Hksqpnkse35ia[Hg] Comments:Pa tient Position: Sitting; Cuff Location: Right Arm; Cuff Size: Standard 13-Jun-2023 13:37 Pulse78/min Comments:Pattern : Regular BP Tvnpztjz506ic[Hg] Comments:Pa tient Position: Sitting; Cuff Location: Left Arm; Cuff Size: Standard BP Lfyaavytr27mv[Hg] Comments:Pa tient Position: Sitting; Cuff Location: Left Arm; Cuff Size: Standard Dilciz37.8kg Ysaqjc077.34cm BMI27.30kg/m2 BSA2.09m2 18-Apr-2023 15:55 BP Agihqplm234bd[Hg] Comments:Pa tient Position: Sitting; Cuff Location: Right Arm; Cuff Size: Standard BP Cfflyzpqf23ri[Hg] Comments:Pa tient Position: Sitting; Cuff Location: Right Arm; Cuff Size: Standard 18-Apr-2023 15:49 Cfarzdjbxcj08.6f Pulse77/min Comments:Pattern : Regular BP Edtbjbjc507dj[Hg] Comments:Pa tient Position: Sitting; Cuff Location: Left Arm; Cuff Size: Standard BP Hdvharxpg59ta[Hg] Comments:Pa tient Position: Sitting; Cuff Location: Left Arm; Cuff Size: Standard Fkbdjq78fa Uedxww404.34cm BMI27.06kg/m2 BSA2.08m2 19-Dec-2017 16:28 BP Pekpigjd721ts[Hg] Comments:Pa tient Position: Sitting; Cuff Location: Right Arm; Cuff Size: Standard BP Gvstzhkkp73sm[Hg] Comments:Pa tient Position: Sitting; Cuff Location: Right Arm; Cuff Size: Standard 19-Dec-2017 16:23 Pulse78/min Comments:Pattern : Regular BP Pomszxma284gg[Hg] Comments:Pa tient Position: Sitting; Cuff Location: Left Arm; Cuff Size: Standard BP Mcjjusujm56pd[Hg] Comments:Pa tient Position: Sitting; Cuff Location: Left Arm; Cuff Size: Standard Wizvvg256.125lb Pisaog22bu BMI26.24kg/m2 BSA2.05m2 01-Nov-2015 12:34 BP Vgsdwzmk395fa[Hg] Comments:Pa tient Position: Sitting; Cuff Location: Right Arm; Cuff Size: Standard BP Wddzelcxa29qy[Hg] Comments:Pa tient Position: Sitting; Cuff Location: Right Arm; Cuff Size: Standard 01-Nov-2015 12:33 Pulse64/min Comments:Pattern : Regular BP Qqtfhvsv804ez[Hg] Comments:Pa tient Position: Sitting; Cuff Location: Left Arm; Cuff Size: Standard BP Sgbllfzof64kd[Hg] Comments:Pa tient Position: Sitting; Cuff Location: Left Arm; Cuff Size: Standard Xuzsau095.1lb Jpxzag42kj BMI25.96kg/m2 BSA2.05m2 04-Oct-2015 15:09 BP Daxtdneh452um[Hg] Comments:Pa tient Position: Sitting; Cuff Location: Right Arm; Cuff Size: Standard BP Pzlwkdugu01is[Hg] Comments:Pa tient Position: Sitting; Cuff Location: Right Arm; Cuff Size: Standard 04-Oct-2015 15:08 Pulse88/min Comments:Pattern : Regular BP Rwgxklst331xg[Hg] Comments:Pa tient Position: Sitting; Cuff Location: Left Arm; Cuff Size: Standard BP Ujdcxpwfl91qo[Hg] Comments:Pa tient Position: Sitting; Cuff Location: Left Arm; Cuff Size: Standard Oibdcn697.7lb Hvisqs55qz BMI25.90kg/m2 BSA2.04m2 Encounters BCL Appointment Encounter Reason:follow up - .FOLLOW UP.Mr. Cosmo Zambrano is a 52-year-old pleasant gentleman with a past medical history significant of paroxysmal SVT, intermittent palpitations, PACs, PVCs, and mitral valve prolapse. The patient presents to [facility] cardiology office for a close follow-up [...] from Encounter for health education),Mitral regurgitation 13-Jun-2023 13:34Gm90-Npm-7897 14:07 [facility] .PLAN:Mr. Cosmo Zambrano III is a 53-year-old gentleman with a past medical history listed above who presents to [facility] cardiology for close follow-up appointment after [...] well as LVH. Thank you for allowing [facility] cardiology to be a part of Mr. 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 Cosmo Zambrano is a 52-year-old pleasant gentleman with a past medical history significant of paroxysmal SVT, intermittent palpitations, PACs, PVCs, and mitral valve prolapse. The patient presents to [facility] cardiology office for reestablishment of care. [...] 25.0-29.9),Left chest pressure,PVC (premature ventricular contraction) 18-Apr-2023 16:97Az0-Voe-9955 16:15 [facility] cc: Henri Myers IV, MD [facility] Appointment Encounter Reason:[facility] F/U Chronic Conditions - The conditions [...] SVT (supraventricular tachycardia),Intermittent palpitations,Premature atrial contraction 19-Dec-2017 16:66Rm9-Hdf-5548 17:40 [facility] CC- Henri Myers (PCP) [facility] Appointment Encounter Reason:[facility] F/U Chronic Conditions - The conditions include mitral valve disease and supraventricular tachycardia. The patient denies chest pain, claudication, dizziness, edema, fatigue, lightheadedness, palpitations, orthopnea, pre-syncopal episodes, shortness of breath or syncope.,[ADDITIONAL REASON] Follow up diagnostic procedure - Diagnostic tests include echocardiogram and holter monitor. Encounter Diagnosis:MVP (mitral valve prolapse),Paroxysmal SVT (supraventricular tachycardia) 01-Nov-2015 12:38Sm30-Dns-1035 12:55 [facility] Appointment Encounter Reason:Pre-operative consultation - The [...] (supraventricular tachycardia),MVP (mitral valve prolapse),Intermittent palpitations 04-Oct-2015 14:22Jy80-Cwi-2697 15:35 [facility] Payers Insurance Providers [facility] [employer] [address] [place] [address] [place] tel: Group Number:[id number] [facility] [address] [place] [id number] tel: Group Number:[id number] Guarantors Cosmo Hogan III [address] [place] [address] tel:
--- OUTSIDE RECORDS SUMMARY | 2023-09-30 22:52 | External Medical Summary | Continuity of Care Document ---
Author Name [employer], System Address Unknown Organization Unknown Address Unknown Care Team Providers Care Wiring Inspector Name Role Phone HENRI MYERS Unavailable Unavailable Aniya Noriega MD Unavailable [phone] HENRI MYERS MD Unavailable KYREE GUIDRY [...] fx Varicole Status:Completed Comments:testical repair Echo Date:23-Oct-2015 Status:[id number] MD Zohaib Madrigal- Procedure Note: See Note Family History Unknown Family Member Father Status:Active Comments:In good health. no heart disease Mother Status:Active Comments:In good health. no heart disease Sister 1 Status:Active Comments:In good health. no heart disease Social History Alcohol use:;Occasional alcohol use. Current work status:;Full-time. [employer] Marital status:;. Tobacco use:;Never smoker. Smoking Status Never smoked tobacco Sex Male Plan of Treatment Planned Procedures Extended wear monitor - 7 da ys (23364) - SOON (within 1 - 2 weeks) Start:18-Apr-2023 Intent Exercise Stress Test (ST) (38985) - SOON (within 1-2 weeks) Start:18-Apr-2023 Intent 2D Echo, Complete (66301) - SOON (within 1-2 weeks) Start:18-Apr-2023 Intent Comments:With or without IV contrast enhancement agent ELECTROCARDIOGRAM, COMPLETE (86631) Start:18-Apr-2023 Intent Holter Monitor Start:04-Oct-2015 Intent Planned Encounters Medical; Follow Up - f/u to echo, exercise stress, extended monitor [facility] [place] Start:13-Jun-2023 13:30 MD Aniya Noriega Appointment Request Instructions Exercise to Stay Healthy: josias marcano exercise Indication:Overweight (BMI 25.0-29.9) Start:18-Apr-2023 Instruction Type:Patient Education Follow Up with office if no improvement or symptoms worsen Indication:Premature atrial contraction Start:19-Dec-2017 Instruction Type:Provider Instructions for Treatment Results No Known Results No Result Information Available Vital Signs 18-Apr-2023 15:55 BP Carnvzvr765lo[Hg] Comments:Pa tient Position: Sitting; Cuff Location: Right Arm; Cuff Size: Standard BP Okleyvwes26wd[Hg] Comments:Pa tient Position: Sitting; Cuff Location: Right Arm; Cuff Size: Standard 18-Apr-2023 15:49 Ozsebeoptom61.6f Pulse77/min Comments:Pattern : Regular BP Jutlnhns572ww[Hg] Comments:Pa tient Position: Sitting; Cuff Location: Left Arm; Cuff Size: Standard BP Mwjrbuegf26ah[Hg] Comments:Pa tient Position: Sitting; Cuff Location: Left Arm; Cuff Size: Standard Rrcrtz67wg Vbwfsr446.34cm BMI27.06kg/m2 BSA2.08m2 19-Dec-2017 16:28 BP Idbpdizt556bg[Hg] Comments:Pa tient Position: Sitting; Cuff Location: Right Arm; Cuff Size: Standard BP Erhtgozvd22xg[Hg] Comments:Pa tient Position: Sitting; Cuff Location: Right Arm; Cuff Size: Standard 19-Dec-2017 16:23 Pulse78/min Comments:Pattern : Regular BP Jhaonzbp675co[Hg] Comments:Pa tient Position: Sitting; Cuff Location: Left Arm; Cuff Size: Standard BP Cpxneeozb37aj[Hg] Comments:Pa tient Position: Sitting; Cuff Location: Left Arm; Cuff Size: Standard Ssuqpg127.125lb Ffstkl66gw BMI26.24kg/m2 BSA2.05m2 01-Nov-2015 12:34 BP Wpcjzsks039ck[Hg] Comments:Pa tient Position: Sitting; Cuff Location: Right Arm; Cuff Size: Standard BP Bmgslnhbq40bq[Hg] Comments:Pa tient Position: Sitting; Cuff Location: Right Arm; Cuff Size: Standard 01-Nov-2015 12:33 Pulse64/min Comments:Pattern : Regular BP Irstlpfl049pi[Hg] Comments:Pa tient Position: Sitting; Cuff Location: Left Arm; Cuff Size: Standard BP Fdbeyglmg45ic[Hg] Comments:Pa tient Position: Sitting; Cuff Location: Left Arm; Cuff Size: Standard Gcnppw374.1lb Upcrzk33ng BMI25.96kg/m2 BSA2.05m2 04-Oct-2015 15:09 BP Prtjuunq768ts[Hg] Comments:Pa tient Position: Sitting; Cuff Location: Right Arm; Cuff Size: Standard BP Vuvagaowo70ey[Hg] Comments:Pa tient Position: Sitting; Cuff Location: Right Arm; Cuff Size: Standard 04-Oct-2015 15:08 Pulse88/min Comments:Pattern : Regular BP Kcqdbjor367mc[Hg] Comments:Pa tient Position: Sitting; Cuff Location: Left Arm; Cuff Size: Standard BP Gspitrdgc81od[Hg] Comments:Pa tient Position: Sitting; Cuff Location: Left Arm; Cuff Size: Standard Leghon838.7lb Wwhtau28je BMI25.90kg/m2 BSA2.04m2 Encounters CHART NOTE NOT COMPLETE Encounter Reason:[facility] New Patient Visit,[ADDITIONAL REASON] 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 Cosmo Zambrano is a 52-year-old pleasant gentleman with a past medical history significant of paroxysmal SVT, intermittent palpitations, PACs, PVCs, and mitral valve prolapse. The patient presents to [facility] cardiology office for reestablishment of care. [...] 25.0-29.9),Left chest pressure,PVC (premature ventricular contraction) 18-Apr-2023 16:46Yc5-Cig-4403 16:15 [facility] cc: Henri Myers IV, MD [facility] Appointment Encounter Reason:[facility] F/U Chronic Conditions - The conditions include [...] SVT (supraventricular tachycardia),Intermittent palpitations,Premature atrial contraction 19-Dec-2017 16:00Mz4-Kgi-3234 17:40 [facility] CC- Henri Myers (PCP) [facility] Appointment Encounter Reason:[facility] F/U Chronic Conditions - The conditions include mitral valve disease and supraventricular tachycardia. The patient denies chest pain, claudication, dizziness, edema, fatigue, lightheadedness, palpitations, orthopnea, pre-syncopal episodes, shortness of breath or syncope.,[ADDITIONAL REASON] Follow up diagnostic procedure - Diagnostic tests include echocardiogram and holter monitor. Encounter Diagnosis:MVP (mitral valve prolapse),Paroxysmal SVT (supraventricular tachycardia) 01-Nov-2015 12:77Ta81-Prd-0659 12:55 [facility] Appointment Encounter Reason:Pre-operative consultation - The [...] (supraventricular tachycardia),MVP (mitral valve prolapse),Intermittent palpitations 04-Oct-2015 14:41Lm06-Lxe-1697 15:35 [facility] Payers Insurance Providers [facility] [address] [place] [id number] tel: Group Number:[id number] Guarantors Cosmo Hogan [place] [id number] [place] [address] tel:
--- OUTSIDE RECORDS SUMMARY | 2023-09-30 22:52 | External Medical Summary | Continuity of Care Document ---
Author Name Finance Vice President, System Address Unknown Organization Unknown Address Unknown Care Team Providers Care Reliability Technologist Name Role Phone HENRI MYERS Unavailable Unavailable Aniya Noriega MD Unavailable HENRI MYERS MD Unavailable KYREE GUIDRY MD Unavailable [phone] ZOHAIB MADRIGAL MD Unavailable Zohaib Madrigal MD [...] fx Varicole Status:Completed Comments:testical repair Echo Date:23-Oct-2015 Status:[id number] MD Zohaib Madrigal- Procedure Note: See Note Family History Unknown Family Member Father Status:Active Comments:In good health. no heart disease Mother Status:Active Comments:In good health. no heart disease Sister 1 Status:Active Comments:In good health. no heart disease Social History Alcohol use:;Occasional alcohol use. Current work status:;Full-time. [employer] Marital status:;. Tobacco use:;Never smoker. Smoking Status Never smoked tobacco Sex Male Plan of Treatment Planned Procedures Extended wear monitor - 7 da ys (21128) - SOON (within 1 - 2 weeks) Start:18-Apr-2023 Intent Exercise Stress Test (ST) (66978) - SOON (within 1-2 weeks) Start:18-Apr-2023 Intent 2D Echo, Complete (27902) - SOON (within 1-2 weeks) Start:18-Apr-2023 Intent Comments:With or without IV contrast enhancement agent ELECTROCARDIOGRAM, COMPLETE (01759) Start:18-Apr-2023 Intent Holter Monitor Start:04-Oct-2015 Intent Planned Encounters Medical; Follow Up - f/u to echo, exercise stress, extended monitor [facility] [place] Start:13-Jun-2023 13:30 MD Aniya Noriega Appointment Request Instructions Exercise to Stay Healthy: josias marcano exercise Indication:Overweight (BMI 25.0-29.9) Start:18-Apr-2023 Instruction Type:Patient Education Follow Up with office if no improvement or symptoms worsen Indication:Premature atrial contraction Start:19-Dec-2017 Instruction Type:Provider Instructions for Treatment Results No Known Results No Result Information Available Vital Signs 18-Apr-2023 15:55 BP Ejjzpzil334zr[Hg] Comments:Pa tient Position: Sitting; Cuff Location: Right Arm; Cuff Size: Standard BP Csomryjax30aq[Hg] Comments:Pa tient Position: Sitting; Cuff Location: Right Arm; Cuff Size: Standard 18-Apr-2023 15:49 Yhaiatwftwq93.6f Pulse77/min Comments:Pattern : Regular BP Wmearzwb775hp[Hg] Comments:Pa tient Position: Sitting; Cuff Location: Left Arm; Cuff Size: Standard BP Cwqsqwbdh58pu[Hg] Comments:Pa tient Position: Sitting; Cuff Location: Left Arm; Cuff Size: Standard Vbxkwz36kp Uewtnz062.34cm BMI27.06kg/m2 BSA2.08m2 19-Dec-2017 16:28 BP Hvpbhiek860hw[Hg] Comments:Pa tient Position: Sitting; Cuff Location: Right Arm; Cuff Size: Standard BP Rbagjafzu89jy[Hg] Comments:Pa tient Position: Sitting; Cuff Location: Right Arm; Cuff Size: Standard 19-Dec-2017 16:23 Pulse78/min Comments:Pattern : Regular BP Kmokymvg316ac[Hg] Comments:Pa tient Position: Sitting; Cuff Location: Left Arm; Cuff Size: Standard BP Isxgzatxa07no[Hg] Comments:Pa tient Position: Sitting; Cuff Location: Left Arm; Cuff Size: Standard Ercygl756.125lb Nkqxpk33re BMI26.24kg/m2 BSA2.05m2 01-Nov-2015 12:34 BP Pqlkzqla759yq[Hg] Comments:Pa tient Position: Sitting; Cuff Location: Right Arm; Cuff Size: Standard BP Qdbcsuywv98ko[Hg] Comments:Pa tient Position: Sitting; Cuff Location: Right Arm; Cuff Size: Standard 01-Nov-2015 12:33 Pulse64/min Comments:Pattern : Regular BP Ebbahcen664mi[Hg] Comments:Pa tient Position: Sitting; Cuff Location: Left Arm; Cuff Size: Standard BP Fjoyxtyda43kk[Hg] Comments:Pa tient Position: Sitting; Cuff Location: Left Arm; Cuff Size: Standard Bblpon881.1lb Wggmuj64ih BMI25.96kg/m2 BSA2.05m2 04-Oct-2015 15:09 BP Aivtrwzm418sk[Hg] Comments:Pa tient Position: Sitting; Cuff Location: Right Arm; Cuff Size: Standard BP Rhrqpmnez73gp[Hg] Comments:Pa tient Position: Sitting; Cuff Location: Right Arm; Cuff Size: Standard 04-Oct-2015 15:08 Pulse88/min Comments:Pattern : Regular BP Tzkmxexd889lh[Hg] Comments:Pa tient Position: Sitting; Cuff Location: Left Arm; Cuff Size: Standard BP Soglmryee10dq[Hg] Comments:Pa tient Position: Sitting; Cuff Location: Left Arm; Cuff Size: Standard Arirkb592.7lb Kesfns68bh BMI25.90kg/m2 BSA2.04m2 Encounters [facility]CL Appointment Encounter Reason:BCL New Patient Visit,[ADDITIONAL REASON] 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 Cosmo Zambrano is a 52-year-old pleasant gentleman with a past medical history significant of paroxysmal SVT, intermittent palpitations, PACs, PVCs, and mitral valve prolapse. The patient presents to [facility] cardiology office for reestablishment of [...] 25.0-29.9),Left chest pressure,PVC (premature ventricular contraction) 18-Apr-2023 16:61Vd8-Ajo-9468 16:15 [facility] cc: Hneri Myers IV, MD [facility] Appointment Encounter Reason:[facility] F/U Chronic Conditions - The [...] SVT (supraventricular tachycardia),Intermittent palpitations,Premature atrial contraction 19-Dec-2017 16:85Ox4-Ear-8200 17:40 [facility] CC- Henri Myers (PCP) [facility] Appointment Encounter Reason:[facility] F/U Chronic Conditions - The conditions include mitral valve disease and supraventricular tachycardia. The patient denies chest pain, claudication, dizziness, edema, fatigue, lightheadedness, palpitations, orthopnea, pre-syncopal episodes, shortness of breath or syncope.,[ADDITIONAL REASON] Follow up diagnostic procedure - Diagnostic tests include echocardiogram and holter monitor. Encounter Diagnosis:MVP (mitral valve prolapse),Paroxysmal SVT (supraventricular tachycardia) 01-Nov-2015 12:97Si87-Cdu-6507 12:55 [facility] Appointment Encounter Reason:Pre-operative consultation - The [...] (supraventricular tachycardia),MVP (mitral valve prolapse),Intermittent palpitations 04-Oct-2015 14:55Dr16-Zju-7790 15:35 [facility] Payers Insurance Providers [facility] [address] [place]areem [place] [id number] tel: Group Number:[id number] Guarantors Cosmo Hogan [place] [id number] [place] [id number] tel:
--- OUTSIDE RECORDS SUMMARY | 2023-09-30 22:52 | External Medical Summary | Continuity of Care Document ---
Author Name Tail Sawyer, System Address Unknown Organization Unknown Address Unknown Care Team Providers Care Material Control Specialist Name Role Phone HENRI MYERS Unavailable Unavailable Aniya Noriega MD Unavailable HENRI MYERS MD Unavailable KYREE GUIDRY MD Unavailable [phone] ZOHAIB MADRIGAL MD Unavailable Zohaib Madrigal [...] fx Varicole Status:Completed Comments:testical repair Echo Date:23-Oct-2015 Status:[id number] MD Zohaib Madrigal- Procedure Note: See Note Family History Unknown Family Member Father Status:Active Comments:In good health. no heart disease Mother Status:Active Comments:In good health. no heart disease Sister 1 Status:Active Comments:In good health. no heart disease Social History Alcohol use:;Occasional alcohol use. Current work status:;Full-time. [employer] Marital status:;. Tobacco use:;Never smoker. Smoking Status Never smoked tobacco Sex Male Plan of Treatment Planned Procedures Extended wear monitor - 7 da ys (33456) - SOON (within 1 - 2 weeks) Start:18-Apr-2023 Intent Exercise Stress Test (ST) (96516) - SOON (within 1-2 weeks) Start:18-Apr-2023 Intent 2D Echo, Complete (22959) - SOON (within 1-2 weeks) Start:18-Apr-2023 Intent Comments:With or without IV contrast enhancement agent ELECTROCARDIOGRAM, COMPLETE (09966) Start:18-Apr-2023 Intent Holter Monitor Start:04-Oct-2015 Intent Planned Encounters Medical; Follow Up - f/u to echo, exercise stress, extended monitor [facility] [place] Start:13-Jun-2023 13:30 MD Aniya Noriega Appointment Request Instructions Exercise to Stay Healthy: josias marcano exercise Indication:Overweight (BMI 25.0-29.9) Start:18-Apr-2023 Instruction Type:Patient Education Follow Up with office if no improvement or symptoms worsen Indication:Premature atrial contraction Start:19-Dec-2017 Instruction Type:Provider Instructions for Treatment Results No Known Results No Result Information Available Vital Signs 18-Apr-2023 15:55 BP Qplhjblo035pz[Hg] Comments:Pa tient Position: Sitting; Cuff Location: Right Arm; Cuff Size: Standard BP Inpleqfdz03mb[Hg] Comments:Pa tient Position: Sitting; Cuff Location: Right Arm; Cuff Size: Standard 18-Apr-2023 15:49 Salblelirau26.6f Pulse77/min Comments:Pattern : Regular BP Rgxsiszi025ab[Hg] Comments:Pa tient Position: Sitting; Cuff Location: Left Arm; Cuff Size: Standard BP Wyxkkdpud74mu[Hg] Comments:Pa tient Position: Sitting; Cuff Location: Left Arm; Cuff Size: Standard Sqtvoy95sz Twhlap863.34cm BMI27.06kg/m2 BSA2.08m2 19-Dec-2017 16:28 BP Yzswxetd935jg[Hg] Comments:Pa tient Position: Sitting; Cuff Location: Right Arm; Cuff Size: Standard BP Osgsbeaax21qu[Hg] Comments:Pa tient Position: Sitting; Cuff Location: Right Arm; Cuff Size: Standard 19-Dec-2017 16:23 Pulse78/min Comments:Pattern : Regular BP Znqxxxvq436ze[Hg] Comments:Pa tient Position: Sitting; Cuff Location: Left Arm; Cuff Size: Standard BP Sbhgbevnn35bl[Hg] Comments:Pa tient Position: Sitting; Cuff Location: Left Arm; Cuff Size: Standard Eewcwd767.125lb Izvsrk01qe BMI26.24kg/m2 BSA2.05m2 01-Nov-2015 12:34 BP Bionupxz914rv[Hg] Comments:Pa tient Position: Sitting; Cuff Location: Right Arm; Cuff Size: Standard BP Euqpjbmzf44xz[Hg] Comments:Pa tient Position: Sitting; Cuff Location: Right Arm; Cuff Size: Standard 01-Nov-2015 12:33 Pulse64/min Comments:Pattern : Regular BP Cturpeqo045so[Hg] Comments:Pa tient Position: Sitting; Cuff Location: Left Arm; Cuff Size: Standard BP Zrddcwvha11ra[Hg] Comments:Pa tient Position: Sitting; Cuff Location: Left Arm; Cuff Size: Standard Ulinkm784.1lb Wzvcad03fq BMI25.96kg/m2 BSA2.05m2 04-Oct-2015 15:09 BP Gqoxtzmi209rr[Hg] Comments:Pa tient Position: Sitting; Cuff Location: Right Arm; Cuff Size: Standard BP Gwmpjgzdo64oz[Hg] Comments:Pa tient Position: Sitting; Cuff Location: Right Arm; Cuff Size: Standard 04-Oct-2015 15:08 Pulse88/min Comments:Pattern : Regular BP Oryhzjvm954nl[Hg] Comments:Pa tient Position: Sitting; Cuff Location: Left Arm; Cuff Size: Standard BP Gkptnsmxz91rq[Hg] Comments:Pa tient Position: Sitting; Cuff Location: Left Arm; Cuff Size: Standard Tphlxs675.7lb Iinczd33fn BMI25.90kg/m2 BSA2.04m2 Encounters [facility]CL Appointment Encounter Reason:BCL New Patient Visit,[ADDITIONAL REASON] 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 Cosmo Zambrano is a 52-year-old pleasant gentleman with a past medical history significant of paroxysmal SVT, intermittent palpitations, PACs, PVCs, and mitral valve prolapse. The patient presents to [facility] cardiology office for reestablishment of care. [...] 25.0-29.9),Left chest pressure,PVC (premature ventricular contraction) 18-Apr-2023 16:72Lt0-Zkt-5443 16:[address] [facility] cc: Henri Myers IV, MD [facility] Appointment Encounter Reason:[facility] F/U Chronic Conditions - The [...] SVT (supraventricular tachycardia),Intermittent palpitations,Premature atrial contraction 19-Dec-2017 16:52Fl5-Jgc-5591 17:[address] [facility] CC- Henri Myers (PCP) [facility] Appointment Encounter Reason:[facility] F/U Chronic Conditions - The conditions include mitral valve disease and supraventricular tachycardia. The patient denies chest pain, claudication, dizziness, edema, fatigue, lightheadedness, palpitations, orthopnea, pre-syncopal episodes, shortness of breath or syncope.,[ADDITIONAL REASON] Follow up diagnostic procedure - Diagnostic tests include echocardiogram and holter monitor. Encounter Diagnosis:MVP (mitral valve prolapse),Paroxysmal SVT (supraventricular tachycardia) 01-Nov-2015 12:96Dd17-Tma-0690 12:55 [facility] Appointment Encounter Reason:Pre-operative consultation - The patient [...] (supraventricular tachycardia),MVP (mitral valve prolapse),Intermittent palpitations 04-Oct-2015 14:76Zu39-Ouj-0126 15:[address] [facility] Payers Insurance Providers [facility] [email or web address] [address] [employer] [facility] [address] tel: Group Number:[id number] [facility] [address] [facility] [id number] [place] tel: Group Number:[id number] Guarantors Cosmo Hogan III [address] [facility] [place] [id number] [place] tel:
== END 2023-09-28 14:53 | disposition home or self-care (01) ==
LOC: 2N 13:08 → ED 13:08 → SUATTDRO 18:32 → 2N 22:15